=== PATIENT | male | born 1970 | race Caucasian/White ===

== ENCOUNTER 2018-07-27 13:46 | Inpatient (IN) | payer SELFPAY ==
[2018-07-27 14:08] VITALS: BMI 27.3
--- NOTE | 2018-07-27 14:22 | PDOC ---
History of Present Illness - History of Present Illness Initial Comments: Raudel Johnson is a 48yo man with no known medical history who presents with one week of left chest pain, left arm pain, and left-sided headache along with two weeks of productive cough. He is ethiopian speaking only and requires a cigar packer and sorter to obtain his history. Mr Johnson reports that he had a cough and fever 2 weeks ago, and he continues to have a productive cough. His fever has resolved, and he denies any congestion or sore throat. Today, he is mostly concerned about the chest pain. This pain is non-radiating, sore, and worse when he lays down to sleep. Coughing and walking do not make the pain worse. He has not had any sweating, nausea, or vomiting recently. Mr Johnson takes no medications at home, smokes 5 cigarettes per day, drinks alcohol 3x per week. He has not been to the doctor in over 10 years, however, and has not had any testing completed. He does not believe that he has any family history of HTN, DM, or heart disease. 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 Exposure to dusts, fumes Family history of diabetes 07/27/18 16:04 07/27/18 17:18 07/27/18 17:20 07/29/18 18:16 07/29/18 18:16 - Physicial Exam PE: Alert, oriented x3, mildly to moderately uncomfortable, left sided chest pain Head HEIDY Neck suple No JVD Lungs occ wheezes at right base, clearing with deep inspiration Extremities, Neuro intact 07/29/18 18:17 - Critical Care Time Total Critical Care Time: 30 Critical Care Statement: The care of this patient involved high complexity decision making to prevent further life threatening deterioration of the patient 's condition and/or to evaluate & treat vital organ system(s) failure or risk of failure. - Medical Decision Making While the initial presentation suggested a lower probability for an ACS, , further close evaluation revealed abnormal Troponin. Discussed with centrifugal casting machine tender called in consult, see attached Patient to be admitted on a monitored bed, further repeat Troponin, start treatment as a non STEMI, New onset DM (family history +). Awaiting for bed availability at the Telemetry Unit Endorsed to Dr Squires at shift change at 7pm Patient stable , medications in progress, minimal discomfort 07/29/18 18:22 <Monse Gr S - Last Filed: 07/29/18 18:27> Past History - Past Medical History COPD: No Other medical history: pt denies - Suicide/Smoking/Psychosocial Hx Smoking History: Never smoked Hx Alcohol Use: No Drug/Substance Use Hx: No <Yasmin Esparza - Last Filed: 07/27/18 19:27> <Monse Gr - Last Filed: 07/29/18 18:27> - Past Medical History Allergies/Adverse Reactions: Allergies Allergy/AdvReac Type Severity Reaction Status Date / Time No Known Allergies Allergy Verified 07/27/18 14:00 Home Medications: Ambulatory Orders Acetaminophen [Tylenol .Regular Strength -] 650 mg PO Q6H PRN tablet 07/28/18 Aspirin Coated [Ecotrin -] 81 mg PO DAILY tablet.ec 07/28/18 Heparin - 1,000 unit IVPUSH PRN PRN vial 07/28/18 Heparin - 5,000 unit IVPUSH PRN PRN vial 07/28/18 Insulin (Levemir) [Levemir Vial] 5 units SQ HS units 07/28/18 Insulin Sliding Scale [Novolog Vial Sliding Scale -] 1 vial SQ ACHS units 07/28 Metoprolol Tartrate [Lopressor -] 12.5 mg PO BID tablet 07/28/18 Nicotine Polacrilex [Nicorelief -] 2 mg BUC Q4H PRN gum 07/28/18 Review of Systems - Review of Systems Comments:: General: No fevers, no chills, no weight or appetite change, no malaise HEENT: No changes in vision, no changes in hearing, no congestion, no sore throat CV: +chest pain, no palpitations, no LE edema, no orthopnea Pulm: No SOB, +productive cough, no wheezing GI: No nausea or vomiting, no change in bowel habits, no melena : No frequency, no urgency, no dysuria Musc: No back pain, no joint swelling, no recent injury Skin: No rash, no lesions, no erythema Endo: No excessive thirst, no heat/cold intolerance Heme: No unusual bruising or bleeding, no swollen glands Neuro: No syncope, no numbness/tingling, no focal weakness Vasc: No claudication Psych: No recent change in mood, no SI or HI <IsaiasYasmin - Last Filed: 07/27/18 19:27> *Physical Exam - Vital Signs Last Vital Signs Temp Pulse Resp BP Pulse Ox 98.8 F 94 H 18 138/97 100 07/27/18 13:46 07/27/18 13:46 07/27/18 13:46 07/27/18 13:46 07/27/18 13:46 - Physical Exam Comments: General: Comfortable, no acute distress HEENT: PERRL, EOMI, sclera bright red b/l. MMM, voice normal, normal neck ROM, no LAD Cards: RRR, no murmur appreciated Pulm: Comfortable on room air, clear to auscultation bilaterally Abd: Soft, nontender, nondistended : No CVA tenderness Ext: Atraumatic. No LE edema. ROM intact. Strength 5/5 and equal bilaterally Vasc: Extremities WWP. Palpable radial and pedal pulses bilaterally Skin: Normal color, no rashes or lesions Neuro: A&Ox3, CN grossly intact, normal speech, motor/sensory grossly intact and symmetric Psych: Mood appropriate to situation <IsaiasYasmin - Last Filed: 07/27/18 19:27> - Vital Signs Last Vital Signs Temp Pulse Resp BP Pulse Ox 98.8 F 73 18 138/84 98 07/27/18 13:46 07/27/18 15:17 07/27/18 15:17 07/27/18 15:17 07/27/18 15:17 <Monse Gr S - Last Filed: 07/29/18 18:27> Moderate Sedation - Procedure Monitoring Vital Signs: Procedure Monitoring Vital Signs Temperature 98.8 F 07/27/18 13:46 Pulse Rate 94 H 07/27/18 13:46 Respiratory Rate 18 07/27/18 13:46 Blood Pressure 138/97 07/27/18 13:46 O2 Sat by Pulse Oximetry (%) 100 07/27/18 13:46 <Yasmin Esparza - Last Filed: 07/27/18 19:27> - Procedure Monitoring Vital Signs: Procedure Monitoring Vital Signs Temperature 98.8 F 07/27/18 13:46 Pulse Rate 73 07/27/18 15:17 Respiratory Rate 18 07/27/18 15:17 Blood Pressure 138/84 07/27/18 15:17 O2 Sat by Pulse Oximetry (%) 98 07/27/18 15:17 <Monse Gr S - Last Filed: 07/29/18 18:27> ED Treatment Course - LABORATORY CBC & Chemistry Diagram: 07/27/18 14:16 07/27/18 14:16 - RADIOLOGY Radiology Studies Ordered: Category Date Time Status CHEST PA & LAT [RAD] Stat Radiology 07/27/18 14:13 Ordered <Yasmin Esparza - Last Filed: 07/27/18 19:27> - LABORATORY CBC & Chemistry Diagram: 07/28/18 06:00 07/28/18 06:00 - ADDITIONAL ORDERS Additional order review: Laboratory Results 07/27/18 07/27/18 14:16 14:16 Sodium 133 L Potassium 4.3 Chloride 101 Carbon Dioxide 25 Anion Gap 7 L BUN 9 Creatinine 0.9 Creat Clearance w eGFR > 60 Random Glucose 305 H* Calcium 8.7 Total Bilirubin 0.5 AST 54 H ALT 69 H Alkaline Phosphatase 96 Troponin I 0.22 H Total Protein 7.7 Albumin 3.6 07/27/18 14:16 RBC 4.86 MCV 93.9 MCHC 33.0 RDW 12.0 MPV 9.8 Neutrophils % 57.2 Lymphocytes % 30.7 Monocytes % 10.9 H Eosinophils % 0.7 Basophils % 0.5 <Monse Gr S - Last Filed: 07/29/18 18:27> Medical Decision Making - Medical Decision Making 07/27/18 14:15 Raudel Johnson is a 48yo Telugu-speaking man with no known medical history (no PMD) who presents with one week of left chest, left arm, and left head pain along with productive cough for 2 weeks. - No known history, but has not seen a doctor in over 10 years. Benign exam, however, and overall well appearing. Need to r/o ACS, though no known risk factors, no family history, no obesity, and non-exertional pain with no associated symtpoms of SOB, diaphoresis, n/v. EKG completed on arrival, NSR, normal axis, normal intervals, HR 74. No ST depressions or elevations, no t- wave inversions. Isolated q wave in III. - Pain is not exertional or pleuritic; he states it is worst when trying to sleep. 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 - CBC, CMP, trop, influenza, CXR 07/27/18 15:48 - EKG reviewed. NSR, no concerning abnormalities - CXR without acute changes noted - Labs reviewed. Notable for glucose 305, troponin 0.22 - Discussed results with Mr Johnson and his . Recommending admission for ACS workup. They agree to stay - Will contact admitting team 07/27/18 16:34 - Spoke with Dr Cruz regarding troponin. Will be here in 1hr to evaluate. Requesting nitro, CK, CK-MB, lipid profile - Discussed with Dr Gr. Will also order A1C - Nitro, ASA for chest pain and trop, 1L NS bolus for hyperglycemia <Yasmin Esparza - Last Filed: 07/27/18 19:27> *DC/Admit/Observation/Transfer - Discharge Dispostion Decision to Admit order: Yes <Yasmin Esparza - Last Filed: 07/27/18 19:27> - Discharge Dispostion Decision to Admit order: Yes <Monse Gr - Last Filed: 07/29/18 18:27> Diagnosis at time of Disposition: Troponin level elevated, Hyperglycemia Chest pain Qualifiers: Chest pain type: chest pain due to myocardial ischemia Ischemic chest pain type : other angina pectoris type Qualified Code(s): I20.8 - Other forms of angina pectoris - Discharge Dispostion Disposition: TRANSFER ACUTE CARE/OTHER HOSP Condition at time of disposition: Stable
[2018-07-27 14:27] LABS: BASO % 0.5 % (0-2.0); EOS % 0.7 % (0-4.5); HEMATOCRIT 45.7 % (35.4-49); HEMOGLOBIN 15.1 GM/dl (11.7-16.9); LYMPH % 30.7 % (8-40); MEAN CELL VOLUME 93.9 fl (80-96); MEAN PLT VOLUME 9.8 fl (7.5-11.1); MONO % 10.9 % (3.8-10.2); NEUT % 57.2 % (42.8-82.8); PLATELET COUNT 199 K/MM3 (134-434); RBC 4.86 M/mm3 (4.00-5.60); WHITE BLOOD COUNT 4.2 K/mm3 (4.0-10.8)
[2018-07-27 14:57] LABS: ALBUMIN 3.6 g/dl (3.4-5.0); ALK PHOS 96 U/L (45-117); ANION GAP 7 MMOL/L (8-16); BILIRUBIN,TOTAL 0.5 mg/dl (0.2-1); BLOOD UREA NITROGEN 9 mg/dl (7-18); CALCIUM 8.7 mg/dl (8.5-10); CHLORIDE 101 mmol/L (98-107); CO2 25 mmol/L (21-32); CREATININE 0.9 mg/dl (0.55-1.3); POTASSIUM 4.3 mmol/L (3.5-5.1); SGOT/AST 54 U/L (15-37); SGPT/ALT 69 U/L (13-61); SODIUM 133 mmol/L (136-145); TOT PROT 7.7 g/dl (6.4-8.2)
[2018-07-27 15:00] LABS: GLUCOSE,RANDOM 305 mg/dl (74-106)
[2018-07-27] MEDS ORDERED: ASPIRIN 81 MG CHEWABLE TABLETS PO ONE (16:28)
[2018-07-27] MEDS ORDERED: SODIUM CHLORIDE 0.9% 500 ML INFUS.BAG IV ONE (16:28)
[2018-07-27] MEDS ORDERED: ASPIRIN 81 MG CHEWABLE TABLETS ONE (16:33)
[2018-07-27] MEDS ORDERED: NITROGLYCERIN SUBLINGUAL 1/150 0.4 MG TAB ONE (16:41)
[2018-07-27] MEDS ORDERED: NITROGLYCERIN SUBLINGUAL 1/200 0.3 MG BTL SL ONE (16:42)
--- NOTE | 2018-07-27 17:47 | CON.CARD ---
Consult Consult Specialty:: cardio - History of Present Illness Chief Complaint: chest pain History of Present Illness: 48 M here with CP. developed fever 2 wks ago--resolved. CP and phlegmy cough began 5 days ago--BOTH STARTED SAME DAY. bringing up brownish sputum at present. cp has been present all day every day since onset, not noticeable with working or exertion or climbing stairs--mostly notices the pain when seated or laying in bed. cannot describe quality of the pain to me--denies feeling muscular in nature, it feels "inside" but denies constriction/tightness/pressure/heaviness feeling. pain is not worsen with breathing or exacerbated by cough. denies positional component--not noticing difference btw laying in bed supine, on his side, or sitting up. eyes have been very red as well but not new--? began more than one year ago. denies any sob including with activity. no palpitations smokes 5 cigarettes per day, drinks alcohol 3x per week. He has not been to the doctor in over 10 years no family h/o CAD/CO or heart problems per pt - Alcohol/Substance Use Hx Alcohol Use: No - Smoking History Smoking history: Never smoked Home Medications - Allergies Allergies/Adverse Reactions: Allergies Allergy/AdvReac Type Severity Reaction Status Date / Time No Known Allergies Allergy Verified 07/27/18 14:00 - Home Medications Home Medications: Ambulatory Orders NK [No Known Home Medication] 07/27/18 Review of Systems - Review of Systems Constitutional: denies: Chills, Fever Eyes: denies: Eye Pain HENT: denies: Nasal Congestion Neck: denies: Stiffness Cardiovascular: denies: Palpitations Respiratory: denies: Orthopnea, PND Gastrointestinal: denies: Diarrhea, Rectal Bleeding Genitourinary: denies: Burning, Hematuria Musculoskeletal: denies: Muscle Pain Integumentary: denies: Rash Neurological: denies: Numbness, Seizure, Syncope Endocrine: denies: Excessive Sweating Hematology/Lymphatic: denies: Excessive Bleeding Vital Signs: Vital Signs Temperature 98.8 F 07/27/18 13:46 Pulse Rate 73 07/27/18 15:17 Respiratory Rate 18 07/27/18 15:17 Blood Pressure 138/84 07/27/18 15:17 O2 Sat by Pulse Oximetry (%) 98 07/27/18 15:17 Constitutional: Yes: Well Nourished, No Distress Eyes: No: Sclera Icterus HENT: No: Nasal Congestion Neck: No: Decreased ROM Respiratory: Yes: CTA Bilaterally. No: Accessory Muscle Use, Rales, Rhonchi, Wheezes Gastrointestinal: Yes: Normal Bowel Sounds. No: Distention, Hepatomegaly, Palpable Mass, Tenderness Cardiovascular: Yes: Regular Rate and Rhythm JVD: No Carotid Bruit: No PMI: Non-Displaced Heart Sounds: Yes: S1, S2. No: Gallop, Rub Murmur: No: Systolic Murmur, Diastolic Murmur Musculoskeletal: Yes: Other (No kyphosis) Extremities: No: Cold, Cyanosis Edema: No Peripheral Pulses: 2+ Left Carotid, 2+ Right Carotid, 2+ Left Doralis Pedis, 2+ Right Dorsalis Pedis Integumentary: No: Jaundice Neurological: Yes: Alert, Oriented (x3) Psychiatric: No: Agitated - Other Data Labs, Other Data: CBC, BMP 07/27/18 14:16 07/27/18 14:16 Troponin, BNP 07/27/18 14:16 Troponin I 0.22 H Troponin, BNP 07/27/18 14:16 Troponin I 0.22 H Laboratory Tests 07/27/18 07/27/18 07/27/18 14:16 14:16 14:16 WBC 4.2 Hgb 15.1 Plt Count 199 Sodium 133 L Potassium 4.3 Carbon Dioxide 25 BUN 9 Creatinine 0.9 Random Glucose 305 H* AST 54 H ALT 69 H Creatine Kinase Troponin I 0.22 H Triglycerides Cholesterol Total LDL Cholesterol HDL Cholesterol 07/27/18 16:45 WBC Hgb Plt Count Sodium Potassium Carbon Dioxide BUN Creatinine Random Glucose AST ALT Creatine Kinase 65 Troponin I Triglycerides 265 H Cholesterol 153 Total LDL Cholesterol 69 HDL Cholesterol 31 L Assessment/Plan ECG 07/27 (14:00): NSR, normal axis. no pathological q waves. no ST-T abn #2 (17:48): incomplete RBBB. otherwise no change CXR: clear lungs/pleura. normal mediastinum chest pain, elevated troponin: -intermittent cp x 1 week, atypical sx not exertional, no pleuritic component, worse when lays down in bed -intermediate range troponin could be c/w acute injury. ECG x 2 no ischemia. -cp persisted in ER--RESOLVED AFTER ONE SL NITRO -CAD risk factors include active smoking, low HDL, probably untreated DM (FSG > 300 here), ? HTN (mildly elevated here, not previously treated) -currently no features of pericarditis (pain not pleuritic, no friction rub, no ecg changes) -? nonspecific chest wall sx related to ongoing viral infection (pain does not seem to be related to cough/muscle strain) -repeat troponin now (5 hrs)--if flat, then this rules out ACS and in that case would hold heparin -if troponin rising, rec start heparin drip and plan for elective cath within 72 hrs -will start aspirin 81 but hold b-smith, statin as well pending the repeat troponin -echo in AM -CRP, ESR bronchitis: -phlegmy cough, cxr normal -per hospitalist HTN: -borderline bp here -no meds--observe trend
[2018-07-27] MEDS ORDERED: HEMOQUE TEST 1 EACH EACH ONE ×2 (19:20→21:49)
[2018-07-27] MEDS ORDERED: ATORVASTATIN CA 80 MG TABLET (FP) PO ONE (19:51)
[2018-07-27] MEDS ORDERED: HEPARIN NA (PORCINE) 5,000 UNITS/ML 1ML VIAL IVPUSH PRN ×2 (19:51)
--- NOTE | 2018-07-27 19:55 | PDOC ---
*Physical Exam - Vital Signs Last Vital Signs Temp Pulse Resp BP Pulse Ox 98.8 F 76 18 133/86 100 07/27/18 13:46 07/27/18 18:57 07/27/18 18:57 07/27/18 18:57 07/27/18 18:57 ED Treatment Course - LABORATORY CBC & Chemistry Diagram: 07/27/18 14:16 07/27/18 23:16 - ADDITIONAL ORDERS Additional order review: Laboratory Results 07/27/18 07/27/18 07/27/18 19:24 18:21 16:45 Sodium Potassium Chloride Carbon Dioxide Anion Gap BUN Creatinine Creat Clearance w eGFR POC Glucometer [phone] Random Glucose Calcium Total Bilirubin AST ALT Alkaline Phosphatase Creatine Kinase 65 CK-MB (CK-2) 4.1 H Troponin I 0.60 H Total Protein Albumin Triglycerides 265 H Cholesterol 153 Total LDL Cholesterol 69 HDL Cholesterol 31 L 07/27/18 07/27/18 14:16 14:16 Sodium 133 L Potassium 4.3 Chloride 101 Carbon Dioxide 25 Anion Gap 7 L BUN 9 Creatinine 0.9 Creat Clearance w eGFR > 60 POC Glucometer Random Glucose 305 H* Calcium 8.7 Total Bilirubin 0.5 AST 54 H ALT 69 H Alkaline Phosphatase 96 Creatine Kinase CK-MB (CK-2) Troponin I 0.22 H Total Protein 7.7 Albumin 3.6 Triglycerides Cholesterol Total LDL Cholesterol HDL Cholesterol 07/27/18 07/27/18 19:24 14:16 RBC 4.86 MCV 93.9 MCHC 33.0 RDW 12.0 MPV 9.8 Neutrophils % 57.2 Lymphocytes % 30.7 Monocytes % 10.9 H Eosinophils % 0.7 Basophils % 0.5 POC Glucometer [phone] - Medications Given in the ED: ED Medications Discontinued Medications Generic Name Dose Route Start Last Admin Trade Name Freq PRN Reason Stop Dose Admin Aspirin 324 mg 07/27/18 16:28 07/27/18 16:35 Asa - PO 07/27/18 16:29 324 mg ONCE ONE Administration Nitroglycerin 0.3 mg 07/27/18 16:42 07/27/18 16:43 Nitrostat - SL 07/27/18 16:43 0.3 mg ONCE ONE Administration Sodium Chloride 1,000 ml 07/27/18 16:28 07/27/18 16:35 Normal Saline - IV 07/27/18 16:29 1,000 ml ONCE ONE Administration Progress Note - Progress Note Progress Note: Care of this patient received from . Patient admitted for NSTEMI after presenting with chest pain and troponin found to be 0.22. Patient was seen in ER by and consultation written. Plan was for patient to be admitted to telemetry bed at [facility] with subsequent catheterization at [facility]. Second troponin rising to 0.60. Plan for patient to be admitted to telemetry overnight ([facility]) and transfer for catheterization tomorrow confirmed with Dr. Beach. Patient received Plavix and IV heparin infusion started. 3:30 AM PTT 51.3-no changes made in heparin infusion Medical Decision Making - Medical Decision Making 07/28/18 06:32 Coagulation studies/ CBC/chemistry profile/repeat troponin pending. Patient had quiet night without further chest pain or any new symptoms. Most recent fingerstick was 150 (no coverage required) *DC/Admit/Observation/Transfer Diagnosis at time of Disposition: Troponin level elevated, Hyperglycemia Chest pain Qualifiers: Chest pain type: chest pain due to myocardial ischemia Ischemic chest pain type : other angina pectoris type Qualified Code(s): I20.8 - Other forms of angina pectoris - Discharge Dispostion Condition at time of disposition: Stable Decision to Admit order: Yes - Referrals - Patient Instructions - Post Discharge Activity
[2018-07-27] MEDS ORDERED: HEPARIN NA (PORCINE) 5,000 UNITS/ML 1ML VIAL ONE (20:08)
[2018-07-27] MEDS ORDERED: HEPARIN INFUSION - 25,000 UNITS/500 ML INFUS.BAG IVPB ONE (20:08)
[2018-07-27] MEDS: HEPARIN SOD,PORK IN 0.45% NACL 25,000 UNITS/500 ML INFUS.BAG IVPB SCH ×2 (20:27→21:33)
[2018-07-27] MEDS ORDERED: ATORVASTATIN CA 80 MG TABLET (FP) ONE (20:29)
[2018-07-27 20:42] LABS: INR 1.15 (0.82-1.09); PROTHROMBIN TIME (PATIENT) 12.8 SEC (10.2-13.0)
[2018-07-27] MEDS ORDERED: ACETAMINOPHEN 325 MG TABLET (FP) PO PRN (21:07)
[2018-07-27 21:08] LABS: PH,URINE 5.5 (4.5-8); URINE APPEARANCE Clear; URINE BILIRUBIN Negative (NEGATIVE); URINE COLOR Yellow; URINE GLUCOSE (UA) 2+ (NEGATIVE); URINE KETONE Negative (NEGATIVE); URINE LEUK ESTERASE Negative (NEGATIVE); URINE NITRITE Negative (NEGATIVE); URINE PROTEIN 1+ (NEGATIVE); URINE UROBILINOGEN 0.2 (0.2-1.0)
[2018-07-27] MEDS ORDERED: SENNOSIDES 8.6MG TABLET (FP) PO SCH (22:00)
[2018-07-27] MEDS: METOPROLOL TARTRATE 25 MG TABLET (FP) PO SCH ×4 (22:00→22:27)
[2018-07-27 22:06] LABS: URINE BACTERIA 1+ /hpf (NEGATIVE); URINE RBC 0-2 /hpf (0-3); URINE WBC 0-2 (0-2)
[2018-07-27] MEDS ORDERED: METOPROLOL TARTRATE 25 MG TABLET (FP) PO ONE (22:33)
--- NOTE | 2018-07-27 23:00 | HP ---
Admitting History and Physical - Admission Chief Complaint: chest pain History of Present Illness: 48 y/o M with no known PMH presents to ED at the urging of his common law to be evaluated for 1 week of left sided chest pain, malaise, left arm pain and headache. Pt has not received any regular health care maintenance in approximately 10yrs. He smokes 1/4PPD x 38yrs, consumes ETOH at least thrice weekly and minimally exercises. Mr. Johnson reports viral symptoms one week prior to the occurence of chest pain. He has never experienced these symptoms prior and thought they would resolve without intervention. However, over the last week, pt endorses intermittent left sided chest pressure with pain radiating down his left arm, chronic dry cough, b/l eye redness and headaches. He has not taken any meds to relieve his symptoms. Today at the urging of his female partner he drove himself to [facility] for evaluation. Vitals in ED: BP 138/84, HR 73, RR 18, T 98.8, O2 98%. His CP resolved with SL nitro 0.4mg x 1 dose. labs for notable for BG 305mg/dl, trop # 0.22, 0.60. elevated lipids: Trig 265, chol 153. A1c 9.4%. Pt informed of new diagnosis of Hyperlipidemia and DMII. Neg influenza screen. EKG: non ischemic. CXR: no acute findings. CArdiology was consulted for trop leak. Recommendation to trend trop and if uptrending start heparin drip with plans for cardiac cath in 72hrs. 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: No: Alzheimer's, CVA, Dementia, Migraine, Multiple Sclerosis, Peripheral Neuropathy, Parkinson's, Seizure, Syncope, TIA, Vertigo, Other Cardiovascular: No: AFIB, Aneurysm, Aortic Insufficiency, Aortic Stenosis, CAD, CHF, Deep Vein Thrombosis, HTN, Hyperlipdemia, OH, Mitral Insufficiency, Mitral Stenosis, Murmur, Pulmonary Hypertension, Other Pulmonary: No: Asthma, Bronchitis, Cancer, COPD, O2 Dependent, Pneumonia, Previously Intubated, Pulmonary Embolus, Pulmonary Fibrosis, Sleep Apnea, Other Gastrointestinal: No: Ascites, Cancer, Constipation, Crohn's Disease, Diverticulitis, Diverticulosis, Esophageal Varices, Gastritis, GERD, GI Bleed, Hemorrhoids, Hiatal Hernia, Inflamatory Bowel Disease, Irritable Bowel Disease, Pancreatitis, Peptic Ulcer Disease, Ulcerative Colitis, Other Hepatobiliary: No: Cirrhosis, Cholelithiasis, Cholecystitis, Choledocholithiasis , Hepatitis A, Hepatitis B, Hepatitis C, Other Renal/: No: Renal Failure, Renal Inusuff, BPH, Cancer, Hematuria, Hemodialysis , Neurogenic Bladder, Renal Calculi, UTI, Other Heme/Onc: No: Anemia, B12 Deficiency, Bleeding Disorder, Cancer, Current Chemotherapy, Current Radiation Therapy, Hemochromatosis, Hypercoaguable State, Myeloproliferative Synd, Sickle Cell Disease, Sickle Cell Trait, Thrombocytopenia, Other Infectious Disease: No: AIDS, C-Diff, Herpes Zoster, HIV, MRSA, STD's, Tuberculosis, VREF, Other Psych: No: Addictions, Anxiety, Bipolar, Depression, Panic, Psychosis, Schizophrenia, Other Musculoskeletal: No: Bursitis, Chronic low back pain, Hemiparesis, Hemiplegia, Osteoarthritis, Paraplegia, Other Rheumatology: No: Fibromyalgia, Gout, Lupus, Rheumatoid Arthritis, Sarcoidosis, Vasculitis, Other ENT: No: Allergic Rhinitis, Sinusitis, Other - Past Surgical History Past Surgical History: Yes: None - Smoking History Smoking history: Current every day smoker Have you smoked in the past 12 months: Yes Aproximately how many cigarettes per day: 5 ( x 38yrs) - Alcohol/Substance Use Hx Alcohol Use: Yes (beers 3 times per week or on weekends) History of Substance Use: reports: None - Social History Usual Living Arrangement: Yes: With Significant Other, With Child ADL: Independent 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 History of Recent Travel: No Other Social History: Exercise: none Home Medications - Allergies Allergies/Adverse Reactions: Allergies Allergy/AdvReac Type Severity Reaction Status Date / Time No Known Allergies Allergy Verified 07/27/18 14:00 - Home Medications Home Medications: Ambulatory Orders NK [No Known Home Medication] 07/27/18 Family Disease History - Family Disease History Family Disease History: Other: Father ( (100) natural causes), Mother ( alive (87) HLD) Review of Systems - Review of Systems Constitutional: reports: Lethargy, Malaise, Weakness Eyes: reports: Other (eye redness) HENT: reports: No Symptoms Neck: reports: No Symptoms Cardiovascular: reports: Chest Pain Respiratory: reports: Cough Gastrointestinal: reports: No Symptoms Genitourinary: reports: No Symptoms Breasts: reports: No Symptoms Reported Musculoskeletal: reports: No Symptoms Integumentary: reports: No Symptoms Neurological: reports: No Symptoms Endocrine: reports: No Symptoms Hematology/Lymphatic: reports: No Symptoms Psychiatric: reports: No Symptoms Physical Examination Vital Signs: Vital Signs Temperature 98.8 F 07/27/18 13:46 Pulse Rate 62 07/27/18 20:40 Respiratory Rate 16 07/27/18 20:40 Blood Pressure 147/91 07/27/18 20:40 O2 Sat by Pulse Oximetry (%) 100 07/27/18 20:40 Labs: CBC, BMP 07/27/18 14:16 07/27/18 14:16 Problem List - Problems (1) DMII (diabetes mellitus, type 2) Assessment/Plan: pt with new onset DM -start insulin SC with meals -levemir 5units at bedtime -fingerstick ACHS -diabetic diet -nutrition consult while in-pt for diabetic teaching Code(s): E11.9 - TYPE 2 DIABETES MELLITUS WITHOUT COMPLICATIONS (2) Hyperlipidemia associated with type 2 diabetes mellitus Assessment/Plan: ASA 81mg daily lipitor 80mg qhs Code(s): E11.69 - TYPE 2 DIABETES MELLITUS WITH OTHER SPECIFIED COMPLICATION; E78.5 - HYPERLIPIDEMIA, UNSPECIFIED (3) Viral bronchitis Assessment/Plan: robitussin PRN nebs q6hrs PRN f/u resp PCR swab, flu negative however pt most likely has viral infection Code(s): J20.8 - ACUTE BRONCHITIS DUE TO OTHER SPECIFIED ORGANISMS (4) Conjunctivitis Assessment/Plan: supportive management artificial tears tID hygiene measures Code(s): H10.9 - UNSPECIFIED CONJUNCTIVITIS (5) Cough Assessment/Plan: PRN robitussin Code(s): R05 - COUGH (6) Tobacco abuse Assessment/Plan: nicoderm 2mg gum q4hrs while awake smoking cessation advised Code(s): Z72.0 - TOBACCO USE (7) NSTEMI (non-ST elevated myocardial infarction) Assessment/Plan: ACS protocol: ASA/BB/heparin/STATIN pt was not plavix loaded, will await cards recommendation echo ordered serial CPK and trop continuous telemetry Code(s): I21.4 - NON-ST ELEVATION (NSTEMI) MYOCARDIAL INFARCTION Assessment/Plan PPX: - IV heparin infusion, PTT at 5am. Bleeding precautions -OOB to chair -bowel regimen with senna and colace DISPO: Full code pt will need primary care and cardiology follow up at time of discharge Visit type - Emergency Visit Emergency Visit: Yes Care time: The patient presented to the Emergency Department on the above date and was hospitalized for further evaluation of their emergent condition. - New Patient This patient is new to me today: Yes Date on this admission: 07/27/18 - Critical Care Critical Care patient: No
[2018-07-27] MEDS ORDERED: guaiFENesin/D-M SUGAR-FREE/ACLHOL-FREE 118 ML BOTTLE PO PRN (23:05)
[2018-07-27] MEDS ORDERED: NICOTINE POLACRILEX 2 MG GUM BUC PRN (23:11)
[2018-07-27] MEDS ORDERED: INSULIN (LEVEMIR) 100 UNITS/ML UNITS SQ SCH (23:15)
[2018-07-28] MEDS: INSULIN SLIDING SCALE (NOVOLOG) 1 VIAL SQ SCH ×2 (00:16→06:07)
[2018-07-28] MEDS ORDERED: INSULIN REGULAR HUMAN 100 UNITS/ML *VIAL ONE (00:20)
[2018-07-28] MEDS: METOPROLOL TARTRATE 25 MG TABLET (FP) PO SCH (00:56)
[2018-07-28] MEDS ORDERED: HEMOQUE TEST 1 EACH EACH ONE (04:32)
[2018-07-28] MEDS ORDERED: ARTIFICIAL TEARS (POLYVINYL ALCOHOL) OPTH DROPS OU SCH (06:00)
[2018-07-28] MEDS ORDERED: HEMOQUE CONTROL SOLUTION ONE (06:13)
[2018-07-28 07:06] LABS: BASO % 0.6 % (0-2.0); EOS % 2.3 % (0-4.5); HEMATOCRIT 41.2 % (35.4-49); HEMOGLOBIN 14.6 GM/dL (11.7-16.9); LYMPH % 27.7 % (8-40); MCH 32.5 pg (25.7-33.7); MCHC 35.5 g/dl (32.0-35.9); MEAN CELL VOLUME 91.4 fl (80-96); MEAN PLT VOLUME 11.2 fl (7.5-11.1); MONO % 11.6 % (3.8-10.2); NEUT % 57.8 % (42.8-82.8); PLATELET COUNT 159 K/MM3 (134-434); RDW 12.9 % (11.9-15.9); WHITE BLOOD COUNT 4.8 K/mm3 (4.0-10.0)
[2018-07-28 07:29] LABS: INR 1.03 (0.83-1.09); PROTHROMBIN TIME (PATIENT) 12.2 SEC (9.7-13.0)
[2018-07-28 07:42] LABS: ALBUMIN 3.1 g/dl (3.4-5.0); ALK PHOS 89 U/L (45-117); ANION GAP 7 MMOL/L (8-16); BILIRUBIN,TOTAL 0.3 mg/dL (0.2-1); BLOOD UREA NITROGEN 10 mg/dL (7-18); CALCIUM 7.8 mg/dL (8.5-10.1); CHLORIDE 103 mmol/L (98-107); CO2 26 mmol/L (21-32); CREATININE 0.8 mg/dL (0.55-1.3); GLUCOSE,RANDOM 138 mg/dL (74-106); MAGNESIUM 1.9 mg/dL (1.8-2.4); N-TERMINAL BNP 182.3 pg/ml (5-125); PHOSPHOROUS 3.9 mg/dL (2.5-4.9); POTASSIUM 3.7 mmol/L (3.5-5.1); SGOT/AST 42 U/L (15-37); SGPT/ALT 61 U/L (13-61); SODIUM 137 mmol/L (136-145); TOT PROT 7.1 g/dl (6.4-8.2)
[2018-07-28] MEDS ORDERED: ALBUTEROL SO4 2.5/IPRATROPIUM 0.5 INH SOL 3 ML VIAL.NEB. NEB ONE (07:59)
[2018-07-28] MEDS ORDERED: ALBUTEROL SO4 2.5/IPRATROPIUM 0.5 INH SOL 3 ML VIAL.NEB. NEB SCH (08:00)
--- NOTE | 2018-07-28 09:20 | PN ---
Progress Note (short form) - Note Progress Note: s: chest pain resolved. no dyspnea, edema, orthopnea, PND Vital Signs: Vital Signs Period Temp Pulse Resp BP Sys/Chang Pulse Ox Last 24 Hr 98.1 F-98.8 F 54-94 16-19 121-147/79-97 97-100 Constitutional: Yes: Well Nourished, No Distress Eyes: No: Sclera Icterus HENT: No: Nasal Congestion Neck: No: Decreased ROM Respiratory: Yes: CTA Bilaterally. No: Accessory Muscle Use, Rales, Rhonchi, Wheezes Gastrointestinal: Yes: Normal Bowel Sounds. No: Distention, Hepatomegaly, Palpable Mass, Tenderness Cardiovascular: Yes: Regular Rate and Rhythm JVD: No Carotid Bruit: No PMI: Non-Displaced Heart Sounds: Yes: S1, S2. No: Gallop, Rub Murmur: No: Systolic Murmur, Diastolic Murmur Musculoskeletal: Yes: Other (No kyphosis) Extremities: No: Cold, Cyanosis Edema: No Peripheral Pulses: 2+ Left Carotid, 2+ Right Carotid, 2+ Left Doralis Pedis, 2+ Right Dorsalis Pedis Integumentary: No: Jaundice Neurological: Yes: Alert, Oriented (x3) Psychiatric: No: Agitated Current Medications Acetaminophen (Tylenol -) 650 mg PO Q6H PRN PRN Reason: FEVER Albuterol/Ipratropium (Duoneb -) 1 amp NEB RQID [facility] Last Admin: 07/28/18 07:59 Dose: 1 amp Artificial Tears (Artificial Tears Ointment -) 1 applic OU HS [facility] Last Admin: 07/28/18 01:02 Dose: 1 applic Artificial Tears (Artificial Tears) 1 drop OU TID [facility] Last Admin: 07/28/18 06:03 Dose: 1 drop Aspirin (Ecotrin -) 81 mg PO DAILY [facility] Atorvastatin Calcium (Lipitor -) 80 mg PO ONCE ONE Stop: 07/28/18 21:17 Docusate Sodium (Colace -) 100 mg PO DAILY [facility] Guaifenesin (Diabetic Tussin Dm -) 10 ml PO Q6H PRN PRN Reason: COUGH Heparin Sodium (Porcine) (Heparin -) 5,000 unit IVPUSH PRN PRN PRN Reason: Heparin Last Admin: 07/27/18 21:42 Dose: 5,000 unit HEPARIN SOD,PORK IN 0.45% NACL (Heparin-1/2ns 25,000 Units/500) 25,000 units in 500 mls @ 20 mls/hr IVPB TITR [facility]; Protocol Last Admin: 07/27/18 21:33 Dose: 1,000 units/hr, 20 mls/hr Insulin Aspart (Novolog Vial Sliding Scale -) 1 vial SQ ACHS [facility]; Protocol Last Admin: 07/28/18 06:07 Dose: Not Given Insulin Detemir (Levemir Vial) 5 units SQ HS [facility] Last Admin: 07/28/18 01:07 Dose: 5 units Metoprolol Tartrate (Lopressor -) 12.5 mg PO BID [facility] Last Admin: 07/28/18 00:56 Dose: Not Given Nicotine Polacrilex (Nicorette Gum -) 2 mg BUC Q4H PRN PRN Reason: NICOTINE REPLACEMENT RX Senna (Senna -) 2 tab PO [facility] Last Admin: 07/27/18 22:14 Dose: 2 tab Assessment/Plan ECG 07/27 (14:00): NSR, normal axis. no pathological q waves. no ST-T abn #2 (17:48): incomplete RBBB. otherwise no change CXR: clear lungs/pleura. normal mediastinum chest pain, elevated troponin: -intermittent cp x 2 week, atypical sx not exertional, no pleuritic component, worse when lays down in bed -cp persisted in ER--RESOLVED AFTER ONE SL NITRO, cp free this morning -CAD risk factors include active smoking, low HDL, probably untreated DM (FSG > 300 here), ? HTN (mildly elevated here, not previously treated) -currently no features of pericarditis (pain not pleuritic, no friction rub, no ecg changes) -troponin 0.2 ->0.6->2.2 -transfer for cardiac cath to [facility] [place], discussed with patient and family who are agreeable - cont aspirin, heparin gtt, metoprolol, statin bronchitis: -phlegmy cough, cxr normal -per hospitalist HTN: -borderline bp here -no meds--observe trend
[2018-07-28] MEDS ORDERED: DOCUSATE SODIUM 100 MG CAPSULE (FP) PO SCH (10:00)
[2018-07-28] MEDS ORDERED: ASPIRIN COATED 81 MG TABLET.EC PO SCH (10:00)
[2018-07-28] MEDS ORDERED: METOPROLOL TARTRATE 25 MG TABLET (FP) PO SCH (10:00)
--- NOTE | 2018-07-28 10:12 | DS ---
Physical Exam: SUBJECTIVE: Patient seen and examined at bedside in ED. Awaiting ambulance transport to [facility]. Patient denies chest pain. Denies palpitations, SOB. Loose cough. OBJECTIVE: Vital Signs Period Temp Pulse Resp BP Sys/Chang Pulse Ox Last 24 Hr 98 F-98.8 F 54-94 16-20 111-147/77-97 97-100 PHYSICAL EXAM GENERAL: The patient is awake, alert, and fully oriented, in no acute distress. HEAD: Normal with no signs of trauma. EYES: PERRL, extraocular movements intact, sclera reddened, injected appearance. LUNGS: Breath sounds equal, clear to auscultation bilaterally, no wheezes, no crackles, no accessory muscle use. HEART: Regular rate and rhythm, S1, S2 ABDOMEN: Soft, nontender, nondistended NEUROLOGICAL: Cranial nerves II through XII grossly intact. Normal speech, gait not observed. SKIN: Warm, dry, normal turgor LABS Laboratory Results - last 24 hr 07/27/18 07/27/18 07/27/18 14:00 14:15 14:16 WBC 4.2 RBC 4.86 Hgb 15.1 Hct 45.7 MCV 93.9 MCH 31.0 MCHC 33.0 RDW 12.0 Plt Count 199 MPV 9.8 Absolute Neuts (auto) 2.4 Neutrophils % 57.2 Lymphocytes % 30.7 Monocytes % 10.9 H Eosinophils % 0.7 Basophils % 0.5 Nucleated RBC % ESR PT with INR INR PTT (Actin FS) Sodium Potassium Chloride Carbon Dioxide Anion Gap BUN Creatinine Creat Clearance w eGFR POC Glucometer Random Glucose Hemoglobin A1c % 9.4 H Calcium Phosphorus Magnesium Total Bilirubin AST ALT Alkaline Phosphatase Creatine Kinase CK-MB (CK-2) Troponin I C-Reactive Protein B-Natriuretic Peptide Total Protein Albumin Triglycerides Cholesterol Total LDL Cholesterol HDL Cholesterol Urine Color Urine Appearance Urine pH Ur Specific [place] Urine Protein Urine Glucose (UA) Urine Ketones Urine Blood Urine Nitrite Urine Bilirubin Urine Urobilinogen Ur Leukocyte Esterase Urine RBC Urine WBC Urine Bacteria Influenza A (Rapid) Negative Influenza B (Rapid) Negative 07/27/18 07/27/18 07/27/18 14:16 14:16 16:45 WBC RBC Hgb Hct MCV MCH MCHC RDW Plt Count MPV Absolute Neuts (auto) Neutrophils % Lymphocytes % Monocytes % Eosinophils % Basophils % Nucleated RBC % ESR PT with INR INR PTT (Actin FS) Sodium 133 L Potassium 4.3 Chloride 101 Carbon Dioxide 25 Anion Gap 7 L BUN 9 Creatinine 0.9 Creat Clearance w eGFR > 60 POC Glucometer Random Glucose 305 H* Hemoglobin A1c % Calcium 8.7 Phosphorus Magnesium Total Bilirubin 0.5 AST 54 H ALT 69 H Alkaline Phosphatase 96 Creatine Kinase 65 CK-MB (CK-2) 4.1 H Troponin I 0.22 H C-Reactive Protein B-Natriuretic Peptide Total Protein 7.7 Albumin 3.6 Triglycerides 265 H Cholesterol 153 Total LDL Cholesterol 69 HDL Cholesterol 31 L Urine Color Urine Appearance Urine pH Ur Specific [place] Urine Protein Urine Glucose (UA) Urine Ketones Urine Blood Urine Nitrite Urine Bilirubin Urine Urobilinogen Ur Leukocyte Esterase Urine RBC Urine WBC Urine Bacteria Influenza A (Rapid) Influenza B (Rapid) 07/27/18 07/27/18 07/27/18 17:53 17:53 18:21 WBC RBC Hgb Hct MCV MCH MCHC RDW Plt Count MPV Absolute Neuts (auto) Neutrophils % Lymphocytes % Monocytes % Eosinophils % Basophils % Nucleated RBC % ESR 44 H PT with INR INR PTT (Actin FS) Sodium Potassium Chloride Carbon Dioxide Anion Gap BUN Creatinine Creat Clearance w eGFR POC Glucometer Random Glucose Hemoglobin A1c % Calcium Phosphorus Magnesium Total Bilirubin AST ALT Alkaline Phosphatase Creatine Kinase CK-MB (CK-2) Troponin I 0.60 H C-Reactive Protein 0.5 H B-Natriuretic Peptide Total Protein Albumin Triglycerides Cholesterol Total LDL Cholesterol HDL Cholesterol Urine Color Urine Appearance Urine pH Ur Specific [place] Urine Protein Urine Glucose (UA) Urine Ketones Urine Blood Urine Nitrite Urine Bilirubin Urine Urobilinogen Ur Leukocyte Esterase Urine RBC Urine WBC Urine Bacteria Influenza A (Rapid) Influenza B (Rapid) 07/27/18 07/27/18 07/27/18 19:24 20:15 20:25 WBC RBC Hgb Hct MCV MCH MCHC RDW Plt Count MPV Absolute Neuts (auto) Neutrophils % Lymphocytes % Monocytes % Eosinophils % Basophils % Nucleated RBC % ESR PT with INR 12.8 INR 1.15 PTT (Actin FS) Sodium Potassium Chloride Carbon Dioxide Anion Gap BUN Creatinine Creat Clearance w eGFR POC Glucometer [phone] Random Glucose Hemoglobin A1c % Calcium Phosphorus Magnesium Total Bilirubin AST ALT Alkaline Phosphatase Creatine Kinase CK-MB (CK-2) Troponin I C-Reactive Protein B-Natriuretic Peptide Total Protein Albumin Triglycerides Cholesterol Total LDL Cholesterol HDL Cholesterol Urine Color Yellow Urine Appearance Clear Urine pH 5.5 Ur Specific [place] >= 1.030 Urine Protein 1+ H Urine Glucose (UA) 2+ H Urine Ketones Negative Urine Blood Negative Urine Nitrite Negative Urine Bilirubin Negative Urine Urobilinogen 0.2 Ur Leukocyte Esterase Negative Urine RBC 0-2 Urine WBC 0-2 Urine Bacteria 1+ Influenza A (Rapid) Influenza B (Rapid) 07/27/18 07/28/18 07/28/18 23:16 03:44 06:00 WBC RBC Hgb Hct MCV MCH MCHC RDW Plt Count MPV Absolute Neuts (auto) Neutrophils % Lymphocytes % Monocytes % Eosinophils % Basophils % Nucleated RBC % ESR PT with INR INR PTT (Actin FS) 51.3 H Sodium Potassium Chloride Carbon Dioxide Anion Gap BUN Creatinine Creat Clearance w eGFR POC Glucometer Random Glucose 181 H Hemoglobin A1c % Calcium Phosphorus Magnesium Total Bilirubin AST ALT Alkaline Phosphatase Creatine Kinase CK-MB (CK-2) Troponin I Cancelled C-Reactive Protein B-Natriuretic Peptide Total Protein Albumin Triglycerides Cholesterol Total LDL Cholesterol HDL Cholesterol Urine Color Urine Appearance Urine pH Ur Specific [place] Urine Protein Urine Glucose (UA) Urine Ketones Urine Blood Urine Nitrite Urine Bilirubin Urine Urobilinogen Ur Leukocyte Esterase Urine RBC Urine WBC Urine Bacteria Influenza A (Rapid) Influenza B (Rapid) 07/28/18 07/28/18 07/28/18 06:00 06:00 06:00 WBC 4.8 RBC 4.50 Hgb 14.6 Hct 41.2 MCV 91.4 MCH 32.5 MCHC 35.5 RDW 12.9 Plt Count 159 MPV 11.2 H Absolute Neuts (auto) 2.8 Neutrophils % 57.8 Lymphocytes % 27.7 Monocytes % 11.6 H Eosinophils % 2.3 Basophils % 0.6 Nucleated RBC % 0 ESR PT with INR 12.20 INR 1.03 PTT (Actin FS) Sodium 137 Potassium 3.7 Chloride 103 Carbon Dioxide 26 Anion Gap 7 L BUN 10 Creatinine 0.8 Creat Clearance w eGFR > 60 POC Glucometer Random Glucose 138 H Hemoglobin A1c % Calcium 7.8 L Phosphorus 3.9 Magnesium 1.9 Total Bilirubin 0.3 AST 42 H ALT 61 Alkaline Phosphatase 89 Creatine Kinase 79 CK-MB (CK-2) Troponin I 2.15 H* C-Reactive Protein B-Natriuretic Peptide 182.3 H Total Protein 7.1 Albumin 3.1 L Triglycerides Cholesterol Total LDL Cholesterol HDL Cholesterol Urine Color Urine Appearance Urine pH Ur Specific [place] Urine Protein Urine Glucose (UA) Urine Ketones Urine Blood Urine Nitrite Urine Bilirubin Urine Urobilinogen Ur Leukocyte Esterase Urine RBC Urine WBC Urine Bacteria Influenza A (Rapid) Influenza B (Rapid) 07/28/18 07/28/18 06:00 06:02 WBC RBC Hgb Hct MCV MCH MCHC RDW Plt Count MPV Absolute Neuts (auto) Neutrophils % Lymphocytes % Monocytes % Eosinophils % Basophils % Nucleated RBC % ESR PT with INR INR PTT (Actin FS) 40.2 H Sodium Potassium Chloride Carbon Dioxide Anion Gap BUN Creatinine Creat Clearance w eGFR POC Glucometer [phone] Random Glucose Hemoglobin A1c % Calcium Phosphorus Magnesium Total Bilirubin AST ALT Alkaline Phosphatase Creatine Kinase CK-MB (CK-2) Troponin I C-Reactive Protein B-Natriuretic Peptide Total Protein Albumin Triglycerides Cholesterol Total LDL Cholesterol HDL Cholesterol Urine Color Urine Appearance Urine pH Ur Specific [place] Urine Protein Urine Glucose (UA) Urine Ketones Urine Blood Urine Nitrite Urine Bilirubin Urine Urobilinogen Ur Leukocyte Esterase Urine RBC Urine WBC Urine Bacteria Influenza A (Rapid) Influenza B (Rapid) HOSPITAL COURSE: Date of Admission:07/27/18 Date of Discharge: 07/28/18 48 year-old male with no reported PMH presented to ED with report of left sided chest pain x 1 week. Patient's reports patient had a viral illness about two weeks ago with fever. ECG 07/27 (14:00): NSR, normal axis. no pathological q waves. no ST-T abn #2 (17:48): incomplete RBBB. otherwise no change CXR: clear lungs/pleura. normal mediastinum chest pain, elevated troponin: -intermittent cp x 2 week, atypical sx not exertional, no pleuritic component, worse when lays down in bed -cp persisted in ER--RESOLVED AFTER ONE SL NITRO, cp free this morning -CAD risk factors include active smoking, low HDL, probably untreated DM (FSG > 300 here), ? HTN (mildly elevated here, not previously treated) -currently no features of pericarditis (pain not pleuritic, no friction rub, no ecg changes) -troponin 0.2 ->0.6->2.2 -transfer for cardiac cath to [facility] [place], discussed with patient and family who are agreeable - cont aspirin, heparin gtt, metoprolol, statin bronchitis: -phlegmy cough, cxr normal HTN: -borderline bp here -no meds--observe trend Minutes to complete discharge: 35 Discharge Summary Reason For Visit: CHEST PAIN Current Active Problems Chest pain (Acute) Conjunctivitis (Acute) Cough (Acute) DMII (diabetes mellitus, type 2) (Acute) Hyperglycemia (Acute) Hyperlipidemia associated with type 2 diabetes mellitus (Acute) NSTEMI (non-ST elevated myocardial infarction) (Acute) Tobacco abuse (Acute) Troponin level elevated (Acute) Viral bronchitis (Acute) Condition: Stable - Instructions Disposition: TRANSFER ACUTE CARE/OTHER HOSP - Home Medications Comprehensive Discharge Medication List: Ambulatory Orders Acetaminophen [Tylenol .Regular Strength -] 650 mg PO Q6H PRN tablet 07/28/18 Aspirin Coated [Ecotrin -] 81 mg PO DAILY tablet.ec 07/28/18 Heparin - 1,000 unit IVPUSH PRN PRN vial 07/28/18 Heparin - 5,000 unit IVPUSH PRN PRN vial 07/28/18 Insulin (Levemir) [Levemir Vial] 5 units SQ HS units 07/28/18 Insulin Sliding Scale [Novolog Vial Sliding Scale -] 1 vial SQ ACHS units 07/28 Metoprolol Tartrate [Lopressor -] 12.5 mg PO BID tablet 07/28/18 Nicotine Polacrilex [Nicorelief -] 2 mg BUC Q4H PRN gum 07/28/18 This patient is new to me today: Yes Date on this admission: 07/28/18 Emergency Visit: Yes Care time: The patient presented to the Emergency Department on the above date and was hospitalized for further evaluation of their emergent condition. Critical Care patient: Yes Total Critical Care Time (in minutes): 40 Critical Care Statement: The care of this patient involved high complexity decision making to prevent further life threatening deterioration of the patient 's condition and/or to evaluate & treat vital organ system(s) failure or risk of failure. - Discharge Referral Referred to [facility] No
[2018-07-28 10:28] VITALS: BP 119/79; PULSE 65; TEMP 98.1
--- NOTE | 2018-07-28 14:53 | EKG ---
Test Reason : Blood Pressure : / mmHG Vent. Rate : 058 BPM Atrial Rate : 058 BPM P-R Int : 152 ms QRS Dur : 114 ms QT Int : 432 ms P-R-T Axes : 034 077 050 degrees QTc Int : 424 ms SINUS BRADYCARDIA INCOMPLETE RIGHT BUNDLE BRANCH BLOCK NONSPECIFIC T WAVE ABNORMALITY ABNORMAL ECG NO PREVIOUS ECGS AVAILABLE Confirmed by DEMOND KIM MD ([id number]) on 07/28/2018 2:53:18 PM Referred By: DR PIÑA Confirmed By:DEMOND KIM MD
--- NOTE | 2018-07-28 14:53 | EKG ---
Test Reason : Blood Pressure : / mmHG Vent. Rate : 068 BPM Atrial Rate : 068 BPM P-R Int : 156 ms QRS Dur : 116 ms QT Int : 420 ms P-R-T Axes : 035 045 031 degrees QTc Int : 446 ms NORMAL SINUS RHYTHM POSSIBLE INFERIOR INFARCT , AGE UNDETERMINED ABNORMAL ECG WHEN COMPARED WITH ECG OF 27-JUL-2018 17:48, INCOMPLETE RIGHT BUNDLE BRANCH BLOCK IS NO LONGER PRESENT Confirmed by JUDY MARSHALL, DEMOND ([id number]) on 07/28/2018 2:53:22 PM Referred By: NADEGE NARANJO Confirmed By:DEMOND KIM MD
--- NOTE | 2018-07-28 14:54 | EKG ---
Test Reason : Blood Pressure : / mmHG Vent. Rate : 074 BPM Atrial Rate : 074 BPM P-R Int : 126 ms QRS Dur : 104 ms QT Int : 378 ms P-R-T Axes : 019 089 040 degrees QTc Int : 419 ms NORMAL SINUS RHYTHM WITH SINUS ARRHYTHMIA CANNOT RULE OUT INFERIOR INFARCT , AGE UNDETERMINED ABNORMAL ECG NO PREVIOUS ECGS AVAILABLE Confirmed by JUDY MARSHALL, DEMOND ([id number]) on 07/28/2018 2:53:33 PM Referred By: TRUDY PIÑA Confirmed By:DEMOND KIM MD
[2018-07-28] MEDS ORDERED: ATORVASTATIN CA 80 MG TABLET (FP) PO ONE (21:16)
[2018-07-28] MEDS ORDERED: MINERAL OIL/PETROLATUM,WHITE 3.5 GM TUBE OU SCH (22:00)
[2018-07-30 15:18] LABS: CK-MM 100 % (97-100)
== END 2018-07-28 11:09 | disposition short-term general hospital (02) | DRG 190 ==
LOC: FER 13:46 → FM/S 07-28 06:21 → FER 07-28 11:09
PROVIDERS: ADMIT Internal Medicine; ATTEND Internal Medicine
DX: I21.4 Non-ST elevation (NSTEMI) myocardial infarction (principal); R07.9 Chest pain, unspecified; H10.9 Unspecified conjunctivitis; R05 Cough; E11.65 Type 2 diabetes mellitus with hyperglycemia; E78.5 Hyperlipidemia, unspecified; J20.8 Acute bronchitis due to other specified organisms; F17.210 Nicotine dependence, cigarettes, uncomplicated
CPT/HCPCS: 36415; 71045-TC-FY; 71046-TC-FY; 80053; 80061; 81003; 81015; 82550; 82552; 82553; 82947; 82962; 83036; 83735; 83880; 84100; 84484; 85025; 85610; 85651; 85730; 86140; 87804; 93005; 99285-25; J1644

== ENCOUNTER 2018-09-01 17:12 | Emergency (ER) | payer MEDICARE, OTHER ==
[2018-09-01] MEDS ORDERED: SODIUM CHLORIDE 1,000 ML IV STA (17:28)
--- NOTE | 2018-09-01 17:29 | PDOC ---
History of Present Illness <Monse Gr - Last Filed: 09/01/18 17:25> - History of Present Illness Initial Comments: This patient is a 48 year old Turkish speaking male, with significant past medical history of recent CO (07/27/18) s/p stent placement at [facility] , borderline HTN, DMII, presenting with acutely worsening left sided abdominal pain since yesterday. Patient states that it is worse with deep inspiration, radiates to left shoulder. Social Hx: Smokes 5 cigarettes daily. Drinks 3x/week. Denies fever, nausea, vomiting, diarrhea. <Rachel Church - Last Filed: 09/01/18 18:59> - General Chief Complaint: Pain Stated Complaint: LEFT ABDOMINAL/SIDE PAIN Time Seen by Provider: 09/01/18 17:25 Past History - Past Medical History COPD: No - Suicide/Smoking/Psychosocial Hx Smoking History: Current every day smoker Have you smoked in the past 12 months: Yes Number of Cigarettes Smoked Daily: 5 ( x 38yrs) Hx Alcohol Use: Yes (beers 3 times per week or on weekends) Drug/Substance Use Hx: No <Monse Gr - Last Filed: 09/01/18 17:25> <Rachel Church - Last Filed: 09/01/18 18:59> - Past Medical History Allergies/Adverse Reactions: Allergies Allergy/AdvReac Type Severity Reaction Status Date / Time No Known Allergies Allergy Verified 09/01/18 17:15 Home Medications: Ambulatory Orders Aspirin 81 mg PO DAILY 09/01/18 Atorvastatin Ca [Lipitor] 80 mg PO HS 09/01/18 Metformin HCl [Glucophage] 1,000 mg PO BID 09/01/18 Metoprolol Succinate 25 mg PO DAILY 09/01/18 Polyvinyl Alcohol [Artificial Tears] 1 drop OD PRN 09/01/18 Ticagrelor [Brilinta -] 90 mg PO BID 09/01/18 Review of Systems - Review of Systems ABD/GI: Yes: Symptoms Reported (LLQ pain, radiates to left shoulder) <Rachel Church - Last Filed: 09/01/18 18:59> *Physical Exam - Vital Signs Last Vital Signs Temp Pulse Resp BP Pulse Ox 98 F 108 H 20 160/98 99 09/01/18 17:15 09/01/18 17:15 09/01/18 17:15 09/01/18 17:15 09/01/18 17:15 - Physical Exam Comments: GENERAL: Awake, alert, and fully oriented, in no acute distress HEAD: No signs of trauma EYES: PERRLA, EOMI, sclera injected. ENT: Auricles normal inspection, hearing grossly normal, nares patent, oropharynx clear without exudates. Moist mucosa NECK: Normal ROM, supple, no lymphadenopathy, JVD, or masses LUNGS: Decreased breath sounds. Left side questionable splinting 2/2 pain. No wheezes, and no crackles HEART: Tachycardic rate and regular rhythm, normal S1 and S2, no murmurs, rubs or gallops ABDOMEN: Soft, severe rebound tenderness of LLQ, normoactive bowel sounds. No masses EXTREMITIES: Normal range of motion, no edema. No clubbing or cyanosis. No cords, erythema, or tenderness NEUROLOGICAL: Cranial nerves II through XII grossly intact. Normal speech, normal gait SKIN: Warm, Dry, normal turgor, no rashes or lesions noted. 09/01/18 18:46 <Rachel Church - Last Filed: 09/01/18 18:59> Moderate Sedation - Procedure Monitoring Vital Signs: Procedure Monitoring Vital Signs Temperature 98 F 09/01/18 17:15 Pulse Rate 108 H 09/01/18 17:15 Respiratory Rate 20 09/01/18 17:15 Blood Pressure 160/98 09/01/18 17:15 O2 Sat by Pulse Oximetry (%) 99 09/01/18 17:15 <Rachel Church - Last Filed: 09/01/18 18:59> Heart Score/ECG Review - ECG Intrepretation Comment:: EKG taken on 01-Sep-2018 17:22:32 Vent. rate 103 bpm sinus tachycardia otherwise normal EKG <Rachel Church Last Filed: 09/01/18 18:59> ED Treatment Course - LABORATORY CBC & Chemistry Diagram: 09/01/18 17:48 09/01/18 17:48 - RADIOLOGY Radiograph Interpretation: Chest X-ray Impression: No significant interval change or acute cardiopulmonary disease is present. Reported By: Pavel Orellana MD 09/01/18 [id number] <Rachel Church Filed: 09/01/18 18:59> Medical Decision Making - Medical Decision Making * Percussion in left lumbar area * Pain is very intense. * Will order IV Toradol [address] w/o contrast 09/01/18 18:09 Shift change, patient endorsed to Dr. Mikel Roberts. Awaiting Abd CT results. 09/01/18 18:58 <Rachel Church - Last Filed: 09/01/18 18:59> *DC/Admit/Observation/Transfer <Monse Gr - Last Filed: 09/01/18 17:25> - Attestations Scribe Attestion: 09/01/18 17:43 Documentation prepared by Rachel Church, acting as biomedical equipment tech for Monse Gr MD. <Rachel Church - Last Filed: 09/01/18 18:59> - Discharge Dispostion Condition at time of disposition: Stable
[2018-09-01 17:43] VITALS: TEMP 98; BMI 25.2
[2018-09-01 18:02] LABS: BASO % 0.4 % (0-2.0); EOS % 0.9 % (0-4.5); HEMATOCRIT 42.2 % (35.4-49); HEMOGLOBIN 14.1 GM/dl (11.7-16.9); LYMPH % 19.3 % (8-40); MCH 30.4 pg (25.7-33.7); MCHC 33.3 g/dl (32.0-35.9); MEAN CELL VOLUME 91.2 fl (80-96); MEAN PLT VOLUME 10.1 fl (7.5-11.1); MONO % 6.1 % (3.8-10.2); NEUT % 73.3 % (42.8-82.8); PLATELET COUNT 194 K/MM3 (134-434); RBC 4.62 M/mm3 (4.00-5.60); RDW 11.4 % (11.9-15.9); WHITE BLOOD COUNT 6.3 K/mm3 (4.0-10.8)
[2018-09-01] MEDS ORDERED: KETOROLAC TROMETHAMINE 30 MG/1 ML VIAL ONE (18:08)
[2018-09-01] MEDS ORDERED: KETOROLAC TROMETHAMINE 30 MG/1 ML VIAL IVPUSH ONE (18:11)
[2018-09-01 18:13] LABS: ALBUMIN 3.8 g/dl (3.4-5.0); ALK PHOS 94 U/L (45-117); ANION GAP 12 MMOL/L (8-16); BILIRUBIN,TOTAL 0.4 mg/dl (0.2-1); BLOOD UREA NITROGEN 15 mg/dl (7-18); CALCIUM 8.9 mg/dl (8.5-10); CHLORIDE 95 mmol/L (98-107); CO2 25 mmol/L (21-32); CREATININE 0.9 mg/dl (0.55-1.3); GLUCOSE,RANDOM 204 mg/dl (74-106); POTASSIUM 4.2 mmol/L (3.5-5.1); SGOT/AST 48 U/L (15-37); SGPT/ALT 54 U/L (13-61); SODIUM 132 mmol/L (136-145); TOT PROT 8.7 g/dl (6.4-8.2)
[2018-09-01 18:14] LABS: INR 1.12 (0.82-1.09); PROTHROMBIN TIME (PATIENT) 12.5 SEC (10.2-13.0)
--- NOTE | 2018-09-01 19:12 | PDOC ---
*Physical Exam - Vital Signs Last Vital Signs Temp Pulse Resp BP Pulse Ox 98 F 120 H 24 H 160/98 97 09/01/18 17:15 09/01/18 17:49 09/01/18 17:49 09/01/18 17:15 09/01/18 17:49 ED Treatment Course - LABORATORY CBC & Chemistry Diagram: 09/01/18 17:48 09/01/18 17:48 - ADDITIONAL ORDERS Additional order review: Laboratory Results 09/01/18 09/01/18 17:48 17:48 PT with INR 12.5 INR 1.12 Sodium 132 L Potassium 4.2 Chloride 95 L Carbon Dioxide 25 Anion Gap 12 BUN 15 Creatinine 0.9 Creat Clearance w eGFR > 60 Random Glucose 204 H Calcium 8.9 Total Bilirubin 0.4 AST 48 H ALT 54 Alkaline Phosphatase 94 Total Protein 8.7 H Albumin 3.8 09/01/18 17:48 RBC 4.62 MCV 91.2 MCHC 33.3 RDW 11.4 L MPV 10.1 Neutrophils % 73.3 D Lymphocytes % 19.3 D Monocytes % 6.1 Eosinophils % 0.9 Basophils % 0.4 - Medications Given in the ED: ED Medications Discontinued Medications Generic Name Dose Route Start Last Admin Trade Name Freq PRN Reason Stop Dose Admin Sodium Chloride 1,000 mls @ 1,000 mls/hr 09/01/18 17:28 09/01/18 17:51 Normal Saline - IV 09/01/18 18:27 1,000 mls/hr ASDIR STA Administration Ketorolac Tromethamine 30 mg 09/01/18 18:11 09/01/18 18:13 Toradol Injection - IVPUSH 09/01/18 18:12 30 mg ONCE ONE Administration Progress Note - Progress Note Progress Note: Care of this patient was transferred to tn from Dr. Boyd at 1900 hrs. Patient comes in complaining of left flank pain. Patient workup is to rule out renal colic. Patient's CAT scan is still pending. Patient has been medicated with Toradol and given fluids so is feeling much better at this time and awaiting CAT scan results 20:30 CAT scan is negative for any acute intra-abdominal pathology Patient has a urinalysis pending if that is negative patient is going to be discharged home and will follow-up with his primary care doctor. *DC/Admit/Observation/Transfer Diagnosis at time of Disposition: Abdominal pain Qualifiers: Abdominal location: left lower quadrant Qualified Code(s): R10.32 - Left lower quadrant pain - Discharge Dispostion Disposition: HOME Condition at time of disposition: Stable Decision to Admit order: No - Referrals - Patient Instructions Printed Discharge Instructions: DI for Abdominal Pain-Adult Additional Instructions: You can take Tylenol or Motrin if needed for the pain. Return to the emergency department immediately with ANY new, persistent or worsening symptoms. Continue any medications as previously prescribed by your physician. You should follow up with your primary doctor as soon as possible regarding today's emergency department visit. . Please make sure your doctor reviews the results of your emergency evaluation. Thank you for coming to the Emergency Department today for your care. It was a pleasure to see you today. Please note that your evaluation is INCOMPLETE until you follow-up with your doctor. - Post Discharge Activity
[2018-09-01 19:26] VITALS: BP 129/82; PULSE 102
[2018-09-01 20:49] LABS: PH,URINE 5.5 (4.5-8); URINE APPEARANCE Clear; URINE BILIRUBIN Negative (NEGATIVE); URINE COLOR Yellow; URINE GLUCOSE (UA) Negative (NEGATIVE); URINE KETONE Trace (NEGATIVE); URINE LEUK ESTERASE Negative (NEGATIVE); URINE NITRITE Negative (NEGATIVE); URINE PROTEIN 2+ (NEGATIVE); URINE UROBILINOGEN 0.2 (0.2-1.0)
[2018-09-01 20:56] LABS: URINE RBC 0-2 /hpf (0-3); URINE WBC 0-2 (0-2)
[2018-09-01 20:57] LABS: URINE BACTERIA 1+ /hpf (NEGATIVE)
--- NOTE | 2018-09-02 14:04 | EKG ---
Test Reason : Blood Pressure : / mmHG Vent. Rate : 103 BPM Atrial Rate : 103 BPM P-R Int : 142 ms QRS Dur : 098 ms QT Int : 324 ms P-R-T Axes : 031 072 038 degrees QTc Int : 424 ms SINUS TACHYCARDIA OTHERWISE NORMAL ECG WHEN COMPARED WITH ECG OF 28-JUL-2018 08:21, VENT. RATE HAS INCREASED BY 35 BPM BORDERLINE CRITERIA FOR INFERIOR INFARCT ARE NO LONGER PRESENT Confirmed by MICH MARSHALL, TEZ ([id number]) on 09/02/2018 2:04:26 PM Referred By: MD PIÑA Confirmed By:TEZ EPPS MD
== END 2018-09-01 21:13 | disposition home or self-care (01) ==
LOC: FER 17:12
PROC: 3E0333Z Introduction of Anti-inflammatory into Peripheral Vein, Percutaneous Approach (ICD-10-PCS; principal; 2018-09-01)
PROC: 3E0337Z Introduction of Electrolytic and Water Balance Substance into Peripheral Vein, Percutaneous Approach (ICD-10-PCS; 2018-09-01)
DX: R10.32 Left lower quadrant pain (principal)
CPT/HCPCS: 36415; 71046-TC-FY; 74176-TC; 80053; 81003; 81015; 85025; 85610; 93005; 99284-25; J7030

== ENCOUNTER 2018-09-03 15:47 | Inpatient (IN) | payer OTHER ==
--- NOTE | 2018-09-03 15:55 | PDOC ---
Rapid Medical Evaluation Medical Evaluation: Allergies Allergy/AdvReac Type Severity Reaction Status Date / Time No Known Allergies Allergy Verified 09/03/18 15:54
--- NOTE | 2018-09-03 16:01 | PDOC ---
Rapid Medical Evaluation Chief Complaint: Shortness of Breath Medical Evaluation: Allergies Allergy/AdvReac Type Severity Reaction Status Date / Time No Known Allergies Allergy Verified 09/03/18 15:54 09/03/18 15:56 I have performed a brief in-person evaluation of this patient. The patient presents with a chief complaint of: SOB - waited for appt with Dr Grullon today- sent for R/O PE. Pertinent physical exam findings: pale, with dyspnea with speaking I have ordered the following: EKG, - The patient will proceed to the ED for further evaluation- Discharge Disposition - Diagnosis SOB (shortness of breath) - Referrals - Patient Instructions - Post Discharge Activity
--- NOTE | 2018-09-03 16:32 | PDOC ---
Attending Attestation - HPI HPI: 09/03/18 16:53 The patient is a 48 year old male, with a significant PMH of UT (07/27/18) s/p stent placement x 3 at [facility], borderline hypertension, DMII, who presents to the emergency department with left sided chest pain for 3 weeks and shortness of breath. Of note, patient was seen at [place] ED on 07/27/18 for complaint of chest pain, diagnosed with UT and transferred to [facility] for stent placement. The patient states he has been compliant with his medications since that time. The patient denies any recent sick contacts or travel. Denies any lower extremity swelling or calf tenderness. The patient denies palpitations, headache and dizziness. Denies fever, chills, nausea, vomit, diarrhea and constipation. Denies dysuria, frequency, urgency and hematuria. Allergies: NKA PCP: Dr Grullon Agronomy Advisor: Dr Todd Documentation prepared by Hugo Moran, acting as medical equipment repairer for Francy Claire DO. - Physicial Exam PE: 09/03/18 16:54 GENERAL: Awake, alert, and fully oriented, in no acute distress HEAD: No signs of trauma EYES: PERRLA, EOMI, sclera anicteric, conjunctiva clear ENT: Auricles normal inspection, hearing grossly normal, nares patent, oropharynx clear without exudates. Moist mucosa NECK: Normal ROM, supple, no lymphadenopathy, JVD, or masses LUNGS: Breath sounds equal, clear to auscultation bilaterally. No wheezes, and no crackles. Speaking in full sentences. HEART: (+) Borderline tachycardia. Regular rhythm, normal S1 and S2, no murmurs , rubs or gallops ABDOMEN: Soft, nontender, normoactive bowel sounds. No guarding, no rebound. No masses EXTREMITIES: Normal range of motion, no edema, no calf tenderness. No clubbing or cyanosis. No cords, erythema, or tenderness NEUROLOGICAL: Cranial nerves II through XII grossly intact. Normal speech, normal gait SKIN: Warm, Dry, normal turgor, no rashes or lesions noted. <Hugo Moran - Last Filed: 09/03/18 16:56> - Resident Resident Name: Niranjan Dunn - ED Attending Attestation I have performed the following: I have examined & evaluated the patient, The case was reviewed & discussed with the resident, I agree w/resident's findings & plan, Exceptions are as noted - Medical Decision Making 09/03/18 16:32 I, Dr. Francy Claire, DO, attest that this document has been prepared under my direction and personally reviewed by me in its entirety. I further attest, that it accurately reflects all work, treatment, procedures and medical decision -making performed by me. 09/03/18 16:41 a/p: 48yo male with recent UT 6 weeks ago and 3 stents placed at [facility] presents with L sided cp x 3 weeks -pleuritic in nature -pt states complaint with meds -states pain feels similar to when he had the UT -no radiation -pt sent from Dr. Grullon for PE eval and further eval of CP -denies cough, f/c -no abd pain -c/o diffuse joint pain that has been present x months and is not new -no rash -will send labs, ekg, ct chest, trop -will discuss with Dr. Todd - cards 09/03/18 17:33 trop negative resident discussed the case with Dr. Scanlon, if cta negative and 2 trop negative, dc to home with cards fu as outpt and pmd follow up as outpt 09/03/18 23:32 pt with subsegmental pe jason, pt with pleural effusion LLL, case discussed with Dr. Zhu who accepts pt to service please also see downtime notes and orders <Francy Claire - Last Filed: 09/03/18 23:34> Heart Score/ECG Review - ECG Intrepretation Comment:: 09/03/18 16:47 sinus at 87, nl axis, nl interval, no acute st/t wave findings <Francy Claire - Last Filed: 09/03/18 23:34>
[2018-09-03 16:49] LABS: BASO % 0.2 % (0-2.0); EOS % 1.2 % (0-4.5); HEMATOCRIT 37.3 % (35.4-49); HEMOGLOBIN 13.3 GM/dL (11.7-16.9); LYMPH % 17.8 % (8-40); MCH 31.9 pg (25.7-33.7); MCHC 35.6 g/dl (32.0-35.9); MEAN CELL VOLUME 89.4 fl (80-96); MEAN PLT VOLUME 9.3 fl (7.5-11.1); MONO % 7.6 % (3.8-10.2); NEUT % 73.2 % (42.8-82.8); PLATELET COUNT 177 K/MM3 (134-434); RBC 4.18 M/mm3 (4.00-5.60); RDW 12.2 % (11.9-15.9); WHITE BLOOD COUNT 3.9 K/mm3 (4.0-10.0)
--- NOTE | 2018-09-03 16:51 | PDOC ---
History of Present Illness - General Chief Complaint: Shortness of Breath Stated Complaint: SENT BY PCP // EVAL Time Seen by Provider: 09/03/18 16:13 History Source: Patient Exam Limitations: No Limitations - History of Present Illness Initial Comments: 09/03/18 16:40 48 yo male s/p 3 stents [place] [facility] [place] 07/27/2018 presents to the ED from PCP office (Dr. Grullon) with 3 weeks of left sided CP radiating down to left abdomen. Pt reports seeing his Loom Checker, Dr. Todd last Thursday and was told the pain was non concerning at that time but pain has progressively worsened since that appointment. Pt went to [facility] ER 09/01/2018 for the same complaints, CXR no acute path, EKG shows sinus tach without signs of ischemia , ab/pel ct done without acute path and pt DC home. Pt presents with progressively worsening left CP, constant, radiating to left upper abdomen and made worse with deep breathing. Denies SOB, back pain, abdominal pain, calf swelling/pain, recent travel/immobilization, F/C/N/V. Pt tried tylenol at home without pain relief. Past History - Past Medical History Allergies/Adverse Reactions: Allergies Allergy/AdvReac Type Severity Reaction Status Date / Time No Known Allergies Allergy Verified 09/03/18 15:54 Home Medications: Ambulatory Orders Aspirin 81 mg PO DAILY 09/01/18 Atorvastatin Ca [Lipitor] 80 mg PO HS 09/01/18 Metformin HCl [Glucophage] 1,000 mg PO BID 09/01/18 Metoprolol Succinate 25 mg PO DAILY 09/01/18 Polyvinyl Alcohol [Artificial Tears] 1 drop OD PRN 09/01/18 Ticagrelor [Brilinta -] 90 mg PO BID 09/01/18 COPD: No Diabetes: Yes HTN: Yes Hypercholesterolemia: Yes - Surgical History Cardiac Surgery: (3 STENTS) - Immunization History Immunization Up to Date: Yes - Suicide/Smoking/Psychosocial Hx Smoking History: Never smoked Have you smoked in the past 12 months: Yes Number of Cigarettes Smoked Daily: 5 ( x 38yrs) Information on smoking cessation initiated: No Hx Alcohol Use: No Drug/Substance Use Hx: No Review of Systems - Review of Systems Constitutional: No: Chills, Fever Respiratory: No: Shortness of Breath, Wheezing Cardiac (ROS): Yes: Chest Pain (made worse with deep breathing and movement. radiates to LUQ). No: Edema, Palpitations ABD/GI: No: Constipated, Diarrhea, Nausea, Vomiting : No: Dysuria, Flank Pain Musculoskeletal: No: Back Pain Integumentary: No: Change in Color Neurological: No: Headache, Numbness, Weakness *Physical Exam - Vital Signs Last Vital Signs Temp Pulse Resp BP Pulse Ox 98.2 F 97 H 16 108/76 100 09/03/18 15:54 09/03/18 15:54 09/03/18 15:54 09/03/18 15:54 09/03/18 15:54 - Physical Exam General Appearance: Yes: Nourished, Appropriately Dressed. No: Apparent Distress HEENT: positive: EOMI Neck: positive: Supple Respiratory/Chest: positive: Lungs Clear, Normal Breath Sounds, Rapid RR. negative: Chest Tender, Respiratory Distress, Accessory Muscle Use, Crackles, Rales, Rhonchi, Wheezing Cardiovascular: positive: Regular Rhythm, S1, S2, Tachycardia, Other (non reprodicible pain). negative: Edema, JVD, Murmur Vascular Pulses: Dorsalis-Pedis (R): 4+, Doralis-Pedis (L): 4+ Gastrointestinal/Abdominal: positive: Flat, Soft. negative: Distended, Guarding , Rebound, Tenderness Moderate Sedation - Procedure Monitoring Vital Signs: Procedure Monitoring Vital Signs Temperature 98.2 F 09/03/18 15:54 Pulse Rate 97 H 09/03/18 15:54 Respiratory Rate 16 09/03/18 15:54 Blood Pressure 108/76 09/03/18 15:54 O2 Sat by Pulse Oximetry (%) 100 09/03/18 15:54 ED Treatment Course - LABORATORY CBC & Chemistry Diagram: 09/03/18 16:15 09/03/18 16:15 - RADIOLOGY Radiology Studies Ordered: Category Date Time Status CHEST CTA [CT] Stat CT Scan 09/03/18 16:20 Ordered Medical Decision Making - Medical Decision Making Pt sent from PCP office for 3 weeks SOB and pleuritic CP. Recently 3 stent placed for [place] at [facility] Vitals show elevated HR, RR, normal BP, temp and O2 sat DDX: PE, ACS, costochondritis 09/03/18 17:[address] Scanlon in Cardiology who reviewed Dr. Todd's notes from clinic and todays case including EKG, Trops and ordered CTA of chest. States CTA will help r/o PE or CHF which are potentially concerning for this pt, if negative, reassurance with Tylenol and dispo home are appropriate 09/03/18 23:35 Hospital went through downtime, please see downtime orders Pt found to have PE and pleural effusion Given 72 mg IV push Lovenox Tylenol given for pain FAST negative and no signs of right heart strain Pt admitted for PE and pleural effusion to tele *DC/Admit/Observation/Transfer Diagnosis at time of Disposition: SOB (shortness of breath), Pleural effusion Pulmonary embolism Qualifiers: Pulmonary embolism type: unspecified Chronicity: acute - Discharge Dispostion Condition at time of disposition: Fair Decision to Admit order: Yes - Prescriptions Prescriptions: Amlodipine Besylate [Norvasc -] 5 mg PO DAILY #14 tab - Referrals Referrals: Luis Grullon MD [Primary Care Provider] - - Patient Instructions - Post Discharge Activity
[2018-09-03 17:08] LABS: ALBUMIN 3.3 g/dl (3.4-5.0); ALK PHOS 92 U/L (45-117); ANION GAP 7 MMOL/L (8-16); BILIRUBIN,TOTAL 0.4 mg/dL (0.2-1); BLOOD UREA NITROGEN 9 mg/dL (7-18); CALCIUM 8.3 mg/dL (8.5-10.1); CHLORIDE 98 mmol/L (98-107); CO2 27 mmol/L (21-32); CREATININE 0.9 mg/dL (0.55-1.3); GLUCOSE,RANDOM 148 mg/dL (74-106); POTASSIUM 4.3 mmol/L (3.5-5.1); SGOT/AST 29 U/L (15-37); SGPT/ALT 42 U/L (13-61); SODIUM 132 mmol/L (136-145); TOT PROT 8.3 g/dl (6.4-8.2)
[2018-09-03 17:30] LABS: INR 1.07 (0.83-1.09); PROTHROMBIN TIME (PATIENT) 12.6 SEC (9.7-13.0)
[2018-09-03 17:33] LABS: ACTIVATED PTT 29.6 SECONDS (25.2-36.5)
[2018-09-03] MEDS ORDERED: ENOXAPARIN NA (PORCINE) 80 MG/0.8 ML DISP.SYRIN SQ ONE (20:08)
[2018-09-04] MEDS ORDERED: SODIUM CHLORIDE 1,000 ML IV STA (00:20)
[2018-09-04] MEDS ORDERED: IBUPROFEN 600 MG TABLET (FP) PO ONE (01:15)
[2018-09-04 05:15] LABS: N-TERMINAL BNP 188.6 pg/ml (5-125)
[2018-09-04] MEDS ORDERED: ENOXAPARIN NA (PORCINE) 80 MG/0.8 ML DISP.SYRIN SQ SCH (08:00)
--- NOTE | 2018-09-04 08:07 | PN ---
Progress Note, Physician Chief Complaint: Mr Johnson says he is feeling better. Says his chest pain is minimal today. Denies cp, sob, n/v. - Current Medication List Current Medications: Active Medications Aspirin (Asa -) 81 mg PO DAILY MIKEY Atorvastatin Calcium (Lipitor -) 80 mg PO HS MIKEY Enoxaparin Sodium (Lovenox -) 80 mg SQ Q12H MIKEY Metoprolol Succinate (Toprol Xl -) 25 mg PO DAILY [facility] Non-Formulary Medication (Metformin Hcl [Glucophage]) 1,000 mg PO BID MIKEY Ticagrelor (Brilinta -) 90 mg PO BID [facility] - Objective Vital Signs: Vital Signs Temperature 36.8 C 09/03/18 15:54 Pulse Rate 71 09/04/18 04:00 Respiratory Rate 18 09/04/18 04:00 Blood Pressure 114/74 09/04/18 04:00 O2 Sat by Pulse Oximetry (%) 99 09/04/18 04:00 Constitutional: Yes: Well Nourished, No Distress, Calm Cardiovascular: Yes: Regular Rate and Rhythm. No: Gallop, Murmur, Rub Respiratory: Yes: Regular, On Nasal O2, Rhonchi (R base). No: CTA Bilaterally, Rales, Wheezes Gastrointestinal: Yes: Normal Bowel Sounds, Soft. No: Distention, Tenderness Extremities: Yes: WNL Edema: No Labs: CBC, BMP 09/03/18 16:15 09/03/18 16:15 INR, PTT INR 1.07 (0.83-1.09) 09/03/18 16:15 Problem List - Problems (1) Pulmonary embolism Assessment/Plan: -noted on CT scan with PE protocol -received lovenox in the ED -will continue currently -consult cardiology -currently on brilinta and aspirin for recent stents -will d/w cardiology proper regimen for anticoagulation since on two antiplatelet agents Code(s): I26.99 - OTHER PULMONARY EMBOLISM WITHOUT ACUTE COR PULMONALE Qualifiers: Pulmonary embolism type: unspecified Chronicity: acute Acute cor pulmonale presence: without acute cor pulmonale Qualified Code(s): I26.99 - Other pulmonary embolism without acute cor pulmonale (2) CAD (coronary artery disease) Assessment/Plan: -with recent stent -consult cardiology -continue aspirin and brilinta -continue toprol xl and lipitor Code(s): I25.10 - ATHSCL HEART DISEASE OF [place] CORONARY ARTERY W/O ANG PCTRS (3) Pleural effusion Assessment/Plan: -secondary to PE Code(s): J90 - PLEURAL EFFUSION, NOT ELSEWHERE CLASSIFIED (4) Conjunctivitis Assessment/Plan: -continue prn eyedrops Code(s): H10.9 - UNSPECIFIED CONJUNCTIVITIS (5) DMII (diabetes mellitus, type 2) Assessment/Plan: -diabetic diet -will hold on metformin since received contrast dye Code(s): E11.9 - TYPE 2 DIABETES MELLITUS WITHOUT COMPLICATIONS
[2018-09-04] MEDS ORDERED: ENOXAPARIN NA (PORCINE) 80 MG/0.8 ML DISP.SYRIN SQ ONE (08:23)
[2018-09-04] MEDS: ENOXAPARIN NA (PORCINE) 80 MG/0.8 ML DISP.SYRIN SQ SCH ×2 (09:40→22:19)
[2018-09-04] MEDS: metoPROLOL SUCCINATE 25 MG TAB.SR.24H (FP) PO SCH (09:42)
[2018-09-04] MEDS: TICAGRELOR 90 MG TABLET PO SCH ×2 (09:42→22:48)
[2018-09-04 09:59] LABS: BASO % 0.4 % (0-2.0); EOS % 1.5 % (0-4.5); HEMATOCRIT 37.1 % (35.4-49); HEMOGLOBIN 13.2 GM/dL (11.7-16.9); LYMPH % 17.6 % (8-40); MCH 31.9 pg (25.7-33.7); MCHC 35.5 g/dl (32.0-35.9); MEAN CELL VOLUME 89.9 fl (80-96); MEAN PLT VOLUME 8.7 fl (7.5-11.1); MONO % 6.7 % (3.8-10.2); NEUT % 73.8 % (42.8-82.8); PLATELET COUNT 180 K/MM3 (134-434); RBC 4.12 M/mm3 (4.00-5.60); RDW 12.2 % (11.9-15.9); WHITE BLOOD COUNT 4.3 K/mm3 (4.0-10.0)
[2018-09-04] MEDS ORDERED: ASPIRIN 81 MG CHEWABLE TABLETS PO SCH (10:00)
[2018-09-04] MEDS ORDERED: PATIENT'S OWN MEDICATION (NON-FORMULARY) (Metformin Hcl [Glucophage] 1,000 MG) PO SCH (10:00)
[2018-09-04] MEDS ORDERED: oxyCODONE HCL 5 MG TABLET PO PRN (10:08)
[2018-09-04] MEDS: ACETAMINOPHEN 325 MG TABLET (FP) PO PRN (10:20)
[2018-09-04] MEDS ORDERED: ACETAMINOPHEN 325 MG TABLET (FP) ONE ×2 (10:20→17:00)
[2018-09-04 10:58] LABS: ANION GAP 10 MMOL/L (8-16); BLOOD UREA NITROGEN 11 mg/dL (7-18); CALCIUM 8.4 mg/dL (8.5-10.1); CHLORIDE 102 mmol/L (98-107); CO2 25 mmol/L (21-32); CREATININE 0.8 mg/dL (0.55-1.3); GLUCOSE,RANDOM 174 mg/dL (74-106); MAGNESIUM 2.3 mg/dL (1.8-2.4); PHOSPHOROUS 3.8 mg/dL (2.5-4.9); POTASSIUM 4.1 mmol/L (3.5-5.1); SODIUM 136 mmol/L (136-145)
--- NOTE | 2018-09-04 12:10 | CON.CARD ---
Cardiology Consult (text) - Consultation Consultation Note: Chief Complaint: chest pain History of Present Illness: 48 M here with CP. 06/2018 was here with cp and nstemi, had cath then with stent to mid lad. Has been having intermittent central cp for past few weeks. Mild sob as well. No palps dizzy loc pnd orthopnea le edema. Different cp then when had VT. Found to have PE here. smokes 5 cigarettes per day no family h/o CAD/VT or heart problems per pt - Alcohol/Substance Use Hx Alcohol Use: No Home Medications Home Medications Medication Instructions Recorded Aspirin 81 mg PO DAILY 09/01/18 Atorvastatin Ca [Lipitor] 80 mg PO HS 09/01/18 Metformin HCl [Glucophage] 1,000 mg PO BID 09/01/18 Metoprolol Succinate 25 mg PO DAILY 09/01/18 Polyvinyl Alcohol [Artificial 1 drop OD PRN 09/01/18 Tears] Ticagrelor [Brilinta -] 90 mg PO BID 09/01/18 Review of Systems - Review of Systems Constitutional: denies: Chills, Fever Eyes: denies: Eye Pain HENT: denies: Nasal Congestion Neck: denies: Stiffness Cardiovascular: denies: Palpitations Respiratory: denies: Orthopnea, PND Gastrointestinal: denies: Diarrhea, Rectal Bleeding Genitourinary: denies: Burning, Hematuria Musculoskeletal: denies: Muscle Pain Integumentary: denies: Rash Neurological: denies: Numbness, Seizure, Syncope Endocrine: denies: Excessive Sweating Hematology/Lymphatic: denies: Excessive Bleeding Vital Signs: Vital Signs Period Temp Pulse Resp BP Sys/Chang Pulse Ox Last 24 Hr 97.9 F-98.2 F 71-97 16-20 108-138/74-95 98-100 Constitutional: Yes: Well Nourished, No Distress HENT: No: Nasal Congestion Neck: No: Decreased ROM Respiratory: Yes: CTA Bilaterally. No: Accessory Muscle Use, Rales, Rhonchi, Wheezes Gastrointestinal: Yes: Normal Bowel Sounds. No: Distention, Hepatomegaly, Palpable Mass, Tenderness Cardiovascular: Yes: Regular Rate and Rhythm JVD: No Carotid Bruit: No PMI: Non-Displaced Heart Sounds: Yes: S1, S2. No: Gallop, Rub Murmur: No: Systolic Murmur, Diastolic Murmur Musculoskeletal: Yes: Other (No kyphosis) Extremities: No: Cold, Cyanosis Edema: No Peripheral Pulses: 2+ Left Carotid, 2+ Right Carotid, 2+ Left Doralis Pedis, 2+ Right Dorsalis Pedis Integumentary: No: Jaundice Neurological: Yes: Alert, Oriented (x3) Psychiatric: No: Agitated Laboratory Last Values WBC 4.3 K/mm3 (4.0-10.0) 09/04/18 09:41 RBC 4.12 M/mm3 (4.00-5.60) 09/04/18 09:41 Hgb 13.2 GM/dL (11.7-16.9) 09/04/18 09:41 Hct 37.1 % (35.4-49) 09/04/18 09:41 MCV 89.9 fl (80-96) 09/04/18 09:41 MCH 31.9 pg (25.7-33.7) 09/04/18 09:41 MCHC 35.5 g/dl (32.0-35.9) 09/04/18 09:41 RDW 12.2 % (11.9-15.9) 09/04/18 09:41 Plt Count 180 K/MM3 (134-434) 09/04/18 09:41 MPV 8.7 fl (7.5-11.1) 09/04/18 09:41 Absolute Neuts (auto) 3.2 K/mm3 (1.5-8.0) 09/04/18 09:41 Neutrophils % 73.8 % (42.8-82.8) 09/04/18 09:41 Lymphocytes % 17.6 % (8-40) 09/04/18 09:41 Monocytes % 6.7 % (3.8-10.2) 09/04/18 09:41 Eosinophils % 1.5 % (0-4.5) 09/04/18 09:41 Basophils % 0.4 % (0-2.0) 09/04/18 09:41 Nucleated RBC % 0 % (0-0) 09/04/18 09:41 PT with INR 12.60 SEC (9.7-13.0) 09/03/18 16:15 INR 1.07 (0.83-1.09) 09/03/18 16:15 PTT (Actin FS) 29.6 SECONDS (25.2-36.5) 09/03/18 16:15 Sodium 136 mmol/L (136-145) 09/04/18 09:41 Potassium 4.1 mmol/L (3.5-5.1) 09/04/18 09:41 Chloride 102 mmol/L (98-107) 09/04/18 09:41 Carbon Dioxide 25 mmol/L (21-32) 09/04/18 09:41 Anion Gap 10 MMOL/L (8-16) 09/04/18 09:41 BUN 11 mg/dL (7-18) 09/04/18 09:41 Creatinine 0.8 mg/dL (0.55-1.3) 09/04/18 09:41 Creat Clearance w eGFR > 60 (>60) 09/04/18 09:41 Random Glucose 174 mg/dL (74-106) H 09/04/18 09:41 Calcium 8.4 mg/dL (8.5-10.1) L 09/04/18 09:41 Phosphorus 3.8 mg/dL (2.5-4.9) 09/04/18 09:41 Magnesium 2.3 mg/dL (1.8-2.4) 09/04/18 09:41 Total Bilirubin 0.4 mg/dL (0.2-1) 09/03/18 16:15 AST 29 U/L (15-37) 09/03/18 16:15 ALT 42 U/L (13-61) 09/03/18 16:15 Alkaline Phosphatase 92 U/L (45-117) 09/03/18 16:15 Creatine Kinase 52 U/L (26-308) 09/03/18 16:15 Troponin I < 0.02 ng/ml (0.00-0.05) 09/04/18 03:48 B-Natriuretic Peptide 188.6 pg/ml (5-125) H 09/03/18 16:15 Total Protein 8.3 g/dl (6.4-8.2) H 09/03/18 16:15 Albumin 3.3 g/dl (3.4-5.0) L 09/03/18 16:15 Influenza A (Rapid) Negative 09/04/18 09:41 Influenza B (Rapid) Negative 09/04/18 09:41 Blood Type O POSITIVE 09/04/18 09:41 Antibody Screen Negative 09/04/18 03:48 ecg: sr, nl intervals, no ischemic changes echo 06/2018: nl lv/rv, no sig valve path Assessment/Plan cp, PE: -newly found PE here -no signs of CHF or acs -now on AC -check echo to see RV fcn cad, nstemi, pci: -recent admit for nstemi, had pci to mid lad 06/2018 -has been on asa and brillinta but now that has PE he will also need AC. Spoke with interventionalist to see if can stop asa to avoid triple therapy, he agrees and rec'd that once he is therapeutic on AC then asa can be stopped. He also rec'd to change brillinta to plavix to reduce bleeding risk. The transition requires holding brillinta for morning dose and instead giving plavix 600 mg x1, followed by 75 daily after that. hld: -cont statin htn: -cont bb
[2018-09-04] MEDS ORDERED: oxyCODONE HCL 5 MG TABLET ONE ×2 (17:00→17:44)
[2018-09-04] MEDS ORDERED: LISINOPRIL 5 MG TABLET (FP) ONE (17:32)
[2018-09-04] MEDS ORDERED: oxyCODONE HCL 5 MG TABLET PO ONE (17:45)
[2018-09-04] MEDS: LISINOPRIL 5 MG TABLET (FP) PO SCH (18:43)
[2018-09-04] MEDS ORDERED: PT OWN MED DRAWER 7, Y5N ONE (22:16)
[2018-09-04] MEDS: ATORVASTATIN CA 80 MG TABLET (FP) PO SCH (22:19)
[2018-09-04] MEDS: oxyCODONE HCL 5 MG TABLET PO PRN (22:47)
[2018-09-05 01:04] VITALS: BMI 25.7
[2018-09-05] MEDS: ACETAMINOPHEN 325 MG TABLET (FP) PO PRN ×3 (03:44→17:12)
[2018-09-05] MEDS: oxyCODONE HCL 5 MG TABLET PO PRN ×3 (04:10→21:37)
[2018-09-05 07:21] LABS: BASO % 0.3 % (0-2.0); HEMATOCRIT 33.5 % (35.4-49); LYMPH % 14.6 % (8-40); MCH 32.4 pg (25.7-33.7); MCHC 35.9 g/dl (32.0-35.9); MEAN CELL VOLUME 90.2 fl (80-96); MEAN PLT VOLUME 9.4 fl (7.5-11.1); MONO % 7.4 % (3.8-10.2); NEUT % 76.7 % (42.8-82.8); PLATELET COUNT 168 K/MM3 (134-434); RBC 3.71 M/mm3 (4.00-5.60); WHITE BLOOD COUNT 3.3 K/mm3 (4.0-10.0)
[2018-09-05 07:30] LABS: ANION GAP 6 MMOL/L (8-16); BLOOD UREA NITROGEN 12 mg/dL (7-18); CALCIUM 7.8 mg/dL (8.5-10.1); CHLORIDE 99 mmol/L (98-107); CO2 26 mmol/L (21-32); GLUCOSE,RANDOM 145 mg/dL (74-106); MAGNESIUM 1.9 mg/dL (1.8-2.4); PHOSPHOROUS 3.7 mg/dL (2.5-4.9); POTASSIUM 3.7 mmol/L (3.5-5.1); SODIUM 131 mmol/L (136-145)
[2018-09-05] MEDS: LISINOPRIL 5 MG TABLET (FP) PO SCH (09:27)
[2018-09-05] MEDS: RIVAROXABAN 15 MG TABLET PO SCH ×2 (09:27→21:38)
[2018-09-05] MEDS: metoPROLOL SUCCINATE 25 MG TAB.SR.24H (FP) PO SCH (09:27)
[2018-09-05] MEDS ORDERED: CLOPIDOGREL BISULFATE 300 MG TABLET PO ONE (10:00)
--- NOTE | 2018-09-05 11:22 | PN ---
Progress Note (short form) - Note Progress Note: s: no sob palps dizzy; cp better o: Vital Signs Period Temp Pulse Resp BP Sys/Chang Pulse Ox Last 24 Hr 98 F-101.6 F 80-118 18-21 113-146/50-95 95-98 Constitutional: Yes: Well Nourished, No Distress HENT: No: Nasal Congestion Neck: No: Decreased ROM Respiratory: Yes: CTA Bilaterally. No: Accessory Muscle Use, Rales, Rhonchi, Wheezes Gastrointestinal: Yes: Normal Bowel Sounds. No: Distention, Hepatomegaly, Palpable Mass, Tenderness Cardiovascular: Yes: Regular Rate and Rhythm JVD: No Carotid Bruit: No PMI: Non-Displaced Heart Sounds: Yes: S1, S2. No: Gallop, Rub Murmur: No: Systolic Murmur, Diastolic Murmur Musculoskeletal: Yes: Other (No kyphosis) Extremities: No: Cold, Cyanosis Edema: No Peripheral Pulses: 2+ Left Carotid, 2+ Right Carotid, 2+ Left Doralis Pedis, 2+ Right Dorsalis Pedis Integumentary: No: Jaundice Neurological: Yes: Alert, Oriented (x3) Psychiatric: No: Agitated Current Medications Generic Name Dose Route Start Last Admin Trade Name Freq PRN Reason Stop Dose Admin Acetaminophen 650 mg 09/04/18 10:09 09/05/18 09:31 Tylenol - PO 650 mg Q6H PRN Administration PAIN LEVEL 1-5 Atorvastatin Calcium 80 mg 09/04/18 22:00 09/04/18 22:19 Lipitor - PO 80 mg HS MIKEY Administration Clopidogrel Bisulfate 75 mg 09/06/18 10:00 Plavix - PO DAILY MIKEY Lisinopril 5 mg 09/04/18 17:30 09/05/18 09:27 Prinivil PO 5 mg DAILY MIKEY Administration Metoprolol Succinate 25 mg 09/04/18 10:00 09/05/18 09:27 Toprol Xl - PO 25 mg DAILY MIKEY Administration Oxycodone HCl 5 mg 09/04/18 17:39 09/05/18 09:28 Roxicodone - PO 5 mg Q4H PRN Administration PAIN LEVEL 6-10 Prednisone 60 mg 09/05/18 11:00 Deltasone - PO DAILY [facility] Rivaroxaban 15 mg 09/05/18 10:00 09/05/18 09:27 Xarelto PO 15 mg BID MIKEY Administration CBC, BMP 09/05/18 05:30 09/05/18 05:30 ecg: sr, nl intervals, no ischemic changes echo 06/2018: nl lv/rv, no sig valve path tele: sr/st Assessment/Plan cp, PE: -newly found PE here -no signs of CHF or acs -now on AC -check echo to see RV fcn cad, nstemi, pci: -recent admit for nstemi, had pci to mid lad 06/2018 -has been on asa and brillinta but now that has PE he will also need AC. Spoke with interventionalist to see if can stop asa to avoid triple therapy, he agrees and rec'd that once he is on xarelto then asa can be stopped. He also rec'd to change brillinta to plavix to reduce bleeding risk. The transition requires holding brillinta for morning dose and instead giving plavix 600 mg x1 , followed by 75 daily after that. hld: -cont statin htn: -cont bb
[2018-09-05] MEDS: predniSONE 20 MG TABLET (UD) PO SCH (11:54)
--- NOTE | 2018-09-05 11:58 | PN ---
Progress Note (short form) - Note Progress Note: PULMONARY CONSULTATION DICTATED 09/05/18 IMP CHEST PAIN SYNDROME ? POST-CARDIAC INJURY SYNDROME + RECENT CA,?INFECTIOUS FRED SUB-SEGMENTAL PE LIKELY PROVOKED LEFT PLEURAL EFFUSION ?INFLAMMATORY,? INFECTIOUS ASHD S/P STENT DM SMOKER MEDIASTINAL ADENOPATHY ? REACTIVE RML NODULE PLAN PREDNISONE AC CULTURES ESR,CRP ECHO DUPLEX LOWER EXTREMITIES ANALGESICS F/U CHEST CT OUTPATIENT 2-3MONTHS DR SHEN Problem List - Problems (1) CAD (coronary artery disease) Code(s): I25.10 - ATHSCL HEART DISEASE OF [place] CORONARY ARTERY W/O ANG PCTRS (2) Pleural effusion Code(s): J90 - PLEURAL EFFUSION, NOT ELSEWHERE CLASSIFIED (3) Pulmonary embolism Code(s): I26.99 - OTHER PULMONARY EMBOLISM WITHOUT ACUTE COR PULMONALE Qualifiers: Pulmonary embolism type: unspecified Chronicity: acute Acute cor pulmonale presence: without acute cor pulmonale Qualified Code(s): I26.99 - Other pulmonary embolism without acute cor pulmonale (4) SOB (shortness of breath) Code(s): R06.02 - SHORTNESS OF BREATH (5) Chest pain Code(s): R07.9 - CHEST PAIN, UNSPECIFIED Qualifiers: Chest pain type: chest pain due to myocardial ischemia Ischemic chest pain type: other angina pectoris type Qualified Code(s): I20.8 - Other forms of angina pectoris (6) Cough Code(s): R05 - COUGH (7) DMII (diabetes mellitus, type 2) Code(s): E11.9 - TYPE 2 DIABETES MELLITUS WITHOUT COMPLICATIONS (8) Tobacco abuse Code(s): Z72.0 - TOBACCO USE
--- NOTE | 2018-09-05 12:32 | CONS ---
DATE OF CONSULTATION: 09/05/2018 REFERRING PHYSICIAN: Dustin Krishnamurthy MD The patient is a 48-year-old male with a past medical history of ASHD, status post non-STMI on July 27, 2018, three stents at [facility]; noninsulin-dependent diabetes mellitus; history of tobacco use, 1/2-pack per day for many years, stopped approximately 2 weeks ago; hypertension admitted to [facility] with a complaint of 3-week history of left-sided chest pain radiating down to the left abdomen. 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 Apparently, his symptoms worsened over the past week. He presented to the emergency room on September 01 at [place]. At the time, he had a chest x-ray performed, which revealed no acute pathology, and EKG showed sinus tachycardia and he was discharged home. Patient presented back to the emergency room on September 03 with complaint of worsening left-sided chest pain, pleuritic in nature, increased with inspiration as well as movement. He denied any nausea or vomiting. He did have a cough productive of clear sputum. Denied any hemoptysis. He underwent a CTA of the chest on admission, which revealed small left upper lobe subsegmental pulmonary emboli and, also, a small left pleural effusion and mild mediastinal adenopathy. He was admitted and he was started on anticoagulation. The patient was born in [place] and moved [place] many years ago. He denies any history of COPD or asthma. There is no history of pulmonary emboli or DVT in the past. There is no previous history of DVT or pulmonary emboli. There is no history of recent travel. There are no unexplained fevers, weight loss, or night sweats prior to this episode. PAST MEDICAL HISTORY: Again, incudes ASHD, status post GA, status post 3 stents , diabetes mellitus, hypercholesterolemia, hypertension. SOCIAL HISTORY: Again, born in [place], moved [place] in the 1980s. History of tobacco use, approximately 1/2-pack per day for 38 years, stopped approximately 2 weeks ago. REVIEW OF SYSTEMS: Positive shortness of breath, positive cough, positive intermittent fever, positive pleuritic chest pain. No nausea, no vomiting, no hemoptysis, no abdominal pain. CURRENT MEDICATIONS: Prednisone 60 mg daily, Tylenol, Prinivil, Xarelto, Toprol , Lipitor, and Roxicodone and Plavix. PHYSICAL EXAMINATION: General: The patient is a well-developed, well-nourished male, awake, alert, in no acute respiratory distress. Vital Signs: Temperature maximum 101.6, currently 98.3; blood pressure is 128/ 77; respiratory rate is 20; O2 saturation is 95% on room air. HEENT: Normocephalic, atraumatic. Eyes regular. Neck: Supple. Heart: S1, S2. Chest: Clear. Abdomen: Soft, bowel sounds positive. Extremities: No cyanosis, edema. LABORATORIES: WBC is 3.3, hemoglobin of 12, hematocrit 33.5 with a platelet count of 168,000. INR is 1.07. BUN 12, creatinine 1.0. BNP is 188. Serology, influenza negative. Chest CT, again, reveals a small left upper lobe subsegmental pulmonary emboli with small left pleural effusion, 3-mm nodule in the right middle lobe, and a mild mediastinal adenopathy, likely reactive. IMPRESSION: 1. Chest pain syndrome, possibly post cardiac injury syndrome secondary to recent myocardial infarction. Rule out possible infectious. 2. Left upper lobe subsegmental pulmonary emboli, likely provoked. 3. Left pleural effusion, ? inflammatory, questionable infectious. 4. Atherosclerotic heart disease, status post multiple stents. 5. Diabetes. 6. Tobacco abuse. 7. Mediastinal adenopathy, likely reactive. 8. Small right middle lobe pulmonary nodule. PLAN: I agree with prednisone, anticoagulation. Obtain cultures, obtain ESR, CRP, echocardiography, duplex of the lower extremities. Analgesics as well as obtain followup chest CT outpatient in 2 to 3 months. MIGUEL ANGEL SHEN M.D. UNIQUE/[id number] MTDD
--- NOTE | 2018-09-05 14:20 | PN ---
Progress Note, Physician Chief Complaint: Mr Johnson says he is feeling better. Says his chest pain is minimal today. Denies cp, sob, n/v. - Current Medication List Current Medications: Active Medications Acetaminophen (Tylenol -) 650 mg PO Q6H PRN PRN Reason: PAIN LEVEL 1-5 Last Admin: 09/05/18 09:31 Dose: 650 mg Atorvastatin Calcium (Lipitor -) 80 mg PO HS [facility] Last Admin: 09/04/18 22:19 Dose: 80 mg Clopidogrel Bisulfate (Plavix -) 75 mg PO DAILY [facility] Lisinopril (Prinivil) 5 mg PO DAILY [facility] Last Admin: 09/05/18 09:27 Dose: 5 mg Metoprolol Succinate (Toprol Xl -) 25 mg PO DAILY [facility] Last Admin: 09/05/18 09:27 Dose: 25 mg Oxycodone HCl (Roxicodone -) 5 mg PO Q4H PRN PRN Reason: PAIN LEVEL 6-10 Last Admin: 09/05/18 09:28 Dose: 5 mg Prednisone (Deltasone -) 60 mg PO DAILY [facility] Last Admin: 09/05/18 11:54 Dose: 60 mg Rivaroxaban (Xarelto) 15 mg PO BID [facility] Last Admin: 09/05/18 09:27 Dose: 15 mg - Objective Vital Signs: Vital Signs Temperature 36.9 C 09/05/18 13:54 Pulse Rate 84 09/05/18 13:54 Respiratory Rate 20 09/05/18 13:54 Blood Pressure 122/74 09/05/18 13:54 O2 Sat by Pulse Oximetry (%) 95 09/05/18 09:00 Constitutional: Yes: Well Nourished, No Distress, Calm Eyes: Yes: Other (bilateral scleral inejection) Cardiovascular: Yes: Regular Rate and Rhythm. No: Gallop, Murmur, Rub Respiratory: Yes: Regular, CTA Bilaterally. No: Rales, Rhonchi, Wheezes Gastrointestinal: Yes: Normal Bowel Sounds, Soft. No: Distention, Tenderness Extremities: Yes: WNL Edema: No Labs: CBC, BMP 09/05/18 05:30 09/05/18 05:30 INR, PTT INR 1.07 (0.83-1.09) 09/03/18 16:15 Problem List - Problems (1) Pulmonary embolism Code(s): I26.99 - OTHER PULMONARY EMBOLISM WITHOUT ACUTE COR PULMONALE Qualifiers: Pulmonary embolism type: unspecified Chronicity: acute Acute cor pulmonale presence: without acute cor pulmonale Qualified Code(s): I26.99 - Other pulmonary embolism without acute cor pulmonale (2) CAD (coronary artery disease) Code(s): I25.10 - ATHSCL HEART DISEASE OF [place] CORONARY ARTERY W/O ANG PCTRS (3) Pleural effusion Code(s): J90 - PLEURAL EFFUSION, NOT ELSEWHERE CLASSIFIED (4) Conjunctivitis Code(s): H10.9 - UNSPECIFIED CONJUNCTIVITIS (5) DMII (diabetes mellitus, type 2) Code(s): E11.9 - TYPE 2 DIABETES MELLITUS WITHOUT COMPLICATIONS Assessment/Plan (1) Pulmonary embolism Assessment/Plan: -placed on xarelto -will need triple therapy currently secondary to recent stent Code(s): I26.99 - OTHER PULMONARY EMBOLISM WITHOUT ACUTE COR PULMONALE Qualifiers: Pulmonary embolism type: unspecified Chronicity: acute Acute cor pulmonale presence: without acute cor pulmonale Qualified Code(s): I26.99 - Other pulmonary embolism without acute cor pulmonale (2) CAD (coronary artery disease) Assessment/Plan: -with recent stent -case d/w Dr Scanlon -brilinta stopped -plavix load today -continue aspirin and plavix 75mg tomorrow Code(s): I25.10 - ATHSCL HEART DISEASE OF [place] CORONARY ARTERY W/O ANG PCTRS (3) Pleural effusion Assessment/Plan: -secondary to PE -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
[2018-09-05] MEDS: ATORVASTATIN CA 80 MG TABLET (FP) PO SCH (21:37)
[2018-09-06 07:31] LABS: BASO % 0.1 % (0-2.0); EOS % 0.3 % (0-4.5); HEMATOCRIT 31.7 % (35.4-49); HEMOGLOBIN 11.4 GM/dL (11.7-16.9); LYMPH % 22.2 % (8-40); MCH 31.5 pg (25.7-33.7); MCHC 35.9 g/dl (32.0-35.9); MEAN CELL VOLUME 87.6 fl (80-96); MONO % 10.6 % (3.8-10.2); NEUT % 66.8 % (42.8-82.8); PLATELET COUNT 193 K/MM3 (134-434); RBC 3.62 M/mm3 (4.00-5.60); WHITE BLOOD COUNT 2.7 K/mm3 (4.0-10.0)
[2018-09-06 07:45] LABS: ANION GAP 5 MMOL/L (8-16); BLOOD UREA NITROGEN 13 mg/dL (7-18); CALCIUM 7.7 mg/dL (8.5-10.1); CHLORIDE 101 mmol/L (98-107); CO2 29 mmol/L (21-32); CREATININE 0.8 mg/dL (0.55-1.3); GLUCOSE,RANDOM 154 mg/dL (74-106); MAGNESIUM 2.2 mg/dL (1.8-2.4); PHOSPHOROUS 3.1 mg/dL (2.5-4.9); POTASSIUM 3.9 mmol/L (3.5-5.1); SODIUM 135 mmol/L (136-145)
[2018-09-06] MEDS ORDERED: PT OWN MED DRAWER 7, Y5N ONE (09:13)
[2018-09-06] MEDS: metoPROLOL SUCCINATE 25 MG TAB.SR.24H (FP) PO SCH (09:34)
[2018-09-06] MEDS: LISINOPRIL 5 MG TABLET (FP) PO SCH (09:34)
[2018-09-06] MEDS: predniSONE 20 MG TABLET (UD) PO SCH (09:34)
[2018-09-06] MEDS: RIVAROXABAN 15 MG TABLET PO SCH (09:34)
[2018-09-06] MEDS ORDERED: CLOPIDOGREL BISULFATE 75 MG TABLET (FP) PO SCH (10:00)
--- NOTE | 2018-09-06 10:04 | PN ---
Progress Note, Physician Chief Complaint: PE History of Present Illness: no sob. no cp. no palpitations, syncope - Current Medication List Current Medications: Active Medications Acetaminophen (Tylenol -) 650 mg PO Q6H PRN PRN Reason: PAIN LEVEL 1-5 Last Admin: 09/05/18 17:12 Dose: 650 mg Atorvastatin Calcium (Lipitor -) 80 mg PO HS [facility] Last Admin: 09/05/18 21:37 Dose: 80 mg Clopidogrel Bisulfate (Plavix -) 75 mg PO DAILY [facility] Last Admin: 09/06/18 09:34 Dose: 75 mg Lisinopril (Prinivil) 5 mg PO DAILY [facility] Last Admin: 09/06/18 09:34 Dose: 5 mg Metoprolol Succinate (Toprol Xl -) 25 mg PO DAILY [facility] Last Admin: 09/06/18 09:34 Dose: 25 mg Oxycodone HCl (Roxicodone -) 5 mg PO Q4H PRN PRN Reason: PAIN LEVEL 6-10 Last Admin: 09/05/18 21:37 Dose: 5 mg Prednisone (Deltasone -) 60 mg PO DAILY [facility] Last Admin: 09/06/18 09:34 Dose: 60 mg Rivaroxaban (Xarelto) 15 mg PO BID [facility] Last Admin: 09/06/18 09:34 Dose: 15 mg - Objective Vital Signs: Vital Signs Temperature 98 F 09/06/18 09:25 Pulse Rate 84 09/06/18 09:25 Respiratory Rate 18 09/06/18 09:25 Blood Pressure 117/77 09/06/18 09:25 O2 Sat by Pulse Oximetry (%) 100 09/05/18 21:00 Constitutional: Yes: Well Nourished, No Distress, Calm Cardiovascular: Yes: Regular Rate and Rhythm, S1, S2. No: Gallop, Murmur Respiratory: Yes: Regular, CTA Bilaterally. No: Accessory Muscle Use, Rales, Wheezes Extremities: No: Cold Edema: No Neurological: Yes: Alert, Oriented Psychiatric: No: Agitated Labs: CBC, BMP 09/06/18 06:28 09/06/18 06:28 INR, PTT INR 1.07 (0.83-1.09) 09/03/18 16:15 Assessment/Plan ecg: sr, nl intervals, no ischemic changes echo 06/2018: nl lv/rv, no sig valve path tele: NSR Assessment/Plan cp, PE: -newly found PE here -no signs of CHF or acs -now on AC -f/u echo to reassess RV fcn cad, nstemi, pci: -recent admit for nstemi, had pci to mid lad 06/2018 -has been on asa and brillinta s/p PCI. now on Xarelto for PE--brilinta transitioned to plavix and aspirin stopped, per d/w interventionalist. hld: -cont statin htn: -controlled -cont bb d/c tele
--- NOTE | 2018-09-06 10:37 | PN ---
Progress Note, Physician History of Present Illness: PULMONARY ALERT,MUCH IMPROVED CP ALMOST COMPLETELY RESOLVED - Current Medication List Current Medications: Active Medications Acetaminophen (Tylenol -) 650 mg PO Q6H PRN PRN Reason: PAIN LEVEL 1-5 Last Admin: 09/05/18 17:12 Dose: 650 mg Atorvastatin Calcium (Lipitor -) 80 mg PO HS [facility] Last Admin: 09/05/18 21:37 Dose: 80 mg Clopidogrel Bisulfate (Plavix -) 75 mg PO DAILY [facility] Last Admin: 09/06/18 09:34 Dose: 75 mg Lisinopril (Prinivil) 5 mg PO DAILY [facility] Last Admin: 09/06/18 09:34 Dose: 5 mg Metoprolol Succinate (Toprol Xl -) 25 mg PO DAILY [facility] Last Admin: 09/06/18 09:34 Dose: 25 mg Oxycodone HCl (Roxicodone -) 5 mg PO Q4H PRN PRN Reason: PAIN LEVEL 6-10 Last Admin: 09/05/18 21:37 Dose: 5 mg Prednisone (Deltasone -) 60 mg PO DAILY [facility] Last Admin: 09/06/18 09:34 Dose: 60 mg Rivaroxaban (Xarelto) 15 mg PO BID [facility] Last Admin: 09/06/18 09:34 Dose: 15 mg - Objective Vital Signs: Vital Signs Temperature 98 F 09/06/18 09:25 Pulse Rate 84 09/06/18 09:25 Respiratory Rate 18 09/06/18 09:25 Blood Pressure 117/77 09/06/18 09:25 O2 Sat by Pulse Oximetry (%) 98 09/06/18 09:00 Constitutional: Yes: Well Nourished, Calm Eyes: Yes: WNL HENT: Yes: WNL Neck: Yes: WNL Cardiovascular: Yes: Regular Rate and Rhythm, S1, S2 Respiratory: Yes: CTA Bilaterally Gastrointestinal: Yes: Normal Bowel Sounds Extremities: Yes: WNL Edema: No Labs: CBC, BMP 09/06/18 06:28 09/06/18 06:28 INR, PTT INR 1.07 (0.83-1.09) 09/03/18 16:15 Laboratory Tests 09/05/18 12:20 ESR 94 H Laboratory Tests 09/05/18 12:20 C-Reactive Protein 11.7 H Problem List - Problems (1) CAD (coronary artery disease) Code(s): I25.10 - ATHSCL HEART DISEASE OF [place] CORONARY ARTERY W/O ANG PCTRS (2) Pleural effusion Code(s): J90 - PLEURAL EFFUSION, NOT ELSEWHERE CLASSIFIED (3) Pulmonary embolism Code(s): I26.99 - OTHER PULMONARY EMBOLISM WITHOUT ACUTE COR PULMONALE Qualifiers: Pulmonary embolism type: unspecified Chronicity: acute Acute cor pulmonale presence: without acute cor pulmonale Qualified Code(s): I26.99 - Other pulmonary embolism without acute cor pulmonale (4) SOB (shortness of breath) Code(s): R06.02 - SHORTNESS OF BREATH (5) Chest pain Code(s): R07.9 - CHEST PAIN, UNSPECIFIED Qualifiers: Chest pain type: chest pain due to myocardial ischemia Ischemic chest pain type: other angina pectoris type Qualified Code(s): I20.8 - Other forms of angina pectoris (6) Cough Code(s): R05 - COUGH (7) DMII (diabetes mellitus, type 2) Code(s): E11.9 - TYPE 2 DIABETES [place]LL[place] WITHOUT COMPLICATIONS (8) Tobacco abuse Code(s): Z72.0 - TOBACCO USE Assessment/Plan IMP CHEST PAIN SYNDROME LIKELY POST-CARDIAC INJURY SYNDROME + RECENT [place] FRED SUB-SEGMENTAL PE LIKELY PROVOKED LEFT PLEURAL EFFUSION ?INFLAMMATORY,? INFECTIOUS ASHD S/P STENT DM SMOKER MEDIASTINAL ADENOPATHY ? REACTIVE RML NODULE PLAN CONTINUE PREDNISONE AC ECHO PENDING ANALGESICS F/U CHEST CT OUTPATIENT 2-3MONTHS DR SHEN Problem List - Problems (1) CAD (coronary artery disease) Code(s): I25.10 - ATHSCL HEART DISEASE OF [place] CORONARY ARTERY W/O ANG PCTRS (2) Pleural effusion Code(s): J90 - PLEURAL EFFUSION, NOT ELSEWHERE CLASSIFIED (3) Pulmonary embolism Code(s): I26.99 - OTHER PULMONARY EMBOLISM WITHOUT ACUTE COR PULMONALE Qualifiers: Pulmonary embolism type: unspecified Chronicity: acute Acute cor pulmonale presence: without acute cor pulmonale Qualified Code(s): I26.99 - Other pulmonary embolism without acute cor pulmonale (4) SOB (shortness of breath) Code(s): R06.02 - SHORTNESS OF BREATH (5) Chest pain Code(s): R07.9 - CHEST PAIN, UNSPECIFIED Qualifiers: Chest pain type: chest pain due to myocardial ischemia Ischemic chest pain type: other angina pectoris type Qualified Code(s): I20.8 - Other forms of angina pectoris (6) Cough Code(s): R05 - COUGH (7) DMII (diabetes mellitus, type 2) Code(s): E11.9 - TYPE 2 DIABETES MELLITUS WITHOUT COMPLICATIONS (8) Tobacco abuse Code(s): Z72.0 - TOBACCO USE
--- NOTE | 2018-09-06 10:56 | EKG ---
Test Reason : Blood Pressure : / mmHG Vent. Rate : 087 BPM Atrial Rate : 087 BPM P-R Int : 162 ms QRS Dur : 102 ms QT Int : 370 ms P-R-T Axes : 046 033 030 degrees QTc Int : 445 ms NORMAL SINUS RHYTHM NORMAL ECG WHEN COMPARED WITH ECG OF 01-SEP-2018 17:22, NO SIGNIFICANT CHANGE WAS FOUND Confirmed by TOREY PARADA MD ([id number]) on 09/06/2018 10:55:45 AM Referred By: Confirmed By:TOREY PARADA MD
--- NOTE | 2018-09-06 15:06 | ECHO ---
Name: LIYAH THAYER Exam:Adult Echocardiogram Study Date: 09/06/2018 11:04 AM Age: 48 yrs Reason For Study: new RE Height: 68 in Weight: 166 lb BSA: 1.9 m2 Procedure A complete two-dimensional transthoracic echocardiogram was performed (2D, M-mode, Doppler and color flow Doppler). Left Ventricle The left ventricle is normal in size. Left ventricular systolic function is normal. Ejection Fraction = 60- 65%. No regional wall motion abnormalities noted. Right Ventricle The right ventricle is normal size. The right ventricular systolic function is normal. Atria The left atrial size is normal. Right atrial size is normal. Mitral Valve The mitral valve is normal in structure and function. There is mild mitral regurgitation. Tricuspid Valve The tricuspid valve is normal in structure and function. There is mild tricuspid regurgitation. Right ventricular systolic pressure is normal. Aortic Valve The aortic valve is normal in structure and function. No aortic regurgitation is present. Pulmonic Valve The pulmonic valve is not well visualized. Great Vessels Moderate aortic root dilatation. Pericardium/Pleura There is no pericardial effusion. Interpretation Summary The left ventricle is normal in size. Left ventricular systolic function is normal. No regional wall motion abnormalities noted. Ejection Fraction = 60-65%. The right ventricular systolic function is normal. The left atrial size is normal. Right atrial size is normal. There is mild mitral regurgitation. There is mild tricuspid regurgitation. Right ventricular systolic pressure is normal. Moderate aortic root dilatation. There is no pericardial effusion. Previous study is not available for comparison Raj Caceres MD 09/06/2018 03:06 PM
--- NOTE | 2018-09-06 15:25 | DS ---
Physical Examination Vital Signs: Vital Signs Temperature 36.6 C 09/06/18 09:25 Pulse Rate 84 09/06/18 09:25 Respiratory Rate 18 09/06/18 09:25 Blood Pressure 117/77 09/06/18 09:25 O2 Sat by Pulse Oximetry (%) 98 09/06/18 09:00 Constitutional: Yes: Well Nourished, No Distress, Calm Cardiovascular: Yes: Regular Rate and Rhythm. No: Gallop, Murmur, Rub Respiratory: Yes: Regular, CTA Bilaterally. No: Rales, Rhonchi, Wheezes Gastrointestinal: Yes: Normal Bowel Sounds, Soft. No: Distention, Tenderness Extremities: Yes: WNL Edema: No Labs: CBC, BMP 09/06/18 06:28 09/06/18 06:28 Discharge Summary Reason For Visit: PLEURAL EFFUSION PULMONARY EMBOLISM CHEST PAIN Current Active Problems CAD (coronary artery disease) (Acute) Pleural effusion (Acute) Pulmonary embolism (Acute) SOB (shortness of breath) (Acute) Hospital Course: (1) Pulmonary embolism Code(s): I26.99 - OTHER PULMONARY EMBOLISM WITHOUT ACUTE COR PULMONALE Qualifiers: Pulmonary embolism type: unspecified Chronicity: acute Acute cor pulmonale presence: without acute cor pulmonale Qualified Code(s): I26.99 - Other pulmonary embolism without acute cor pulmonale (2) CAD (coronary artery disease) Code(s): I25.10 - ATHSCL HEART DISEASE OF [place] CORONARY ARTERY W/O ANG PCTRS (3) Pleural effusion Code(s): J90 - PLEURAL EFFUSION, NOT ELSEWHERE CLASSIFIED (4) Conjunctivitis Code(s): H10.9 - UNSPECIFIED CONJUNCTIVITIS (5) DMII (diabetes mellitus, type 2) Code(s): E11.9 - TYPE 2 DIABETES MELLITUS WITHOUT COMPLICATIONS Mr Johnson is a very pleasant 48 year old male who came in with chest pain and found to have a pulmonary embolism with pleural effusion. He was admitted to telemetry. He was seen by cardiology and ruled out for AMI. Case was discussed with cardiology about proper antiplatelet therapy since he needs full anticoagulation. He was placed on lovenox here and transitioned to xarelto. He was on aspirin and brilinta, the brilinta was transitioned to plavix. His aspirin has been stopped. he had chest pain secondary to pleurisy. He was originally trialled on oxycodone but this did not control his pain. He was given prednisone and pain resolved. He had an ECHO which was read as normal. He currently remains pain free. He will be discharged on prednisone taper and xarelto. He is stable for discharge home. 33 minutes spent in preparation of this discharge Condition: Good - Instructions Diet, Activity, Other Instructions: resume previous diet and activity Referrals: Luis Grullon MD [Primary Care Provider] - Susanne Todd MD [Staff Physician] - Disposition: HOME - Home Medications Comprehensive Discharge Medication List: Ambulatory Orders Atorvastatin Ca [Lipitor] 80 mg PO HS 09/01/18 Metformin HCl [Glucophage] 1,000 mg PO BID 09/01/18 Metoprolol Succinate 25 mg PO DAILY 09/01/18 Polyvinyl Alcohol [Artificial Tears] 1 drop OD PRN 09/01/18 Clopidogrel Bisulfate [Plavix -] 75 mg PO DAILY #30 tablet 09/06/18 Lisinopril [Prinivil] 5 mg PO DAILY #30 tablet 09/06/18 Rivaroxaban [Xarelto -] 20 mg PO DAILY #30 tablet 09/06/18 Rivaroxaban [Xarelto] 15 mg PO BID #42 tablet 09/06/18 predniSONE [Deltasone -] 5 mg PO ASDIR #78 tab 09/06/18
[2018-09-06 15:33] VITALS: BP 114/59; PULSE 69; TEMP 98.1
== END 2018-09-06 17:12 | disposition home or self-care (01) | DRG 134 ==
LOC: JER 15:47 → JERBED 23:33 → J4W 09-04 20:52
PROVIDERS: ADMIT Internal Medicine; ATTEND Internal Medicine
DX: I26.99 Other pulmonary embolism without acute cor pulmonale (principal); I25.2 Old myocardial infarction; I10 Essential (primary) hypertension; E11.9 Type 2 diabetes mellitus without complications; E78.00 Pure hypercholesterolemia, unspecified; I25.10 Atherosclerotic heart disease of native coronary artery without angina pectoris; J90 Pleural effusion, not elsewhere classified; H10.9 Unspecified conjunctivitis; R91.1 Solitary pulmonary nodule; R59.0 Localized enlarged lymph nodes; Z87.891 Personal history of nicotine dependence; R06.02 Shortness of breath; R07.89 Other chest pain; R05 Cough; Z95.5 Presence of coronary angioplasty implant and graft
CPT/HCPCS: 36415; 71275-TC; 80048; 80053; 82550; 83735; 83880; 84100; 84484; 85025; 85610; 85651; 85730; 86140; 86850; 86900; 86901; 87804; 93005; 93010; 93306-TC; 93970-TC; 99285-25; J7030